=== PATIENT | male | born 1935 | race African-American/Black ===

== ENCOUNTER 2016-03-29 07:09 | Day surgery (SDC) | payer MEDICARE ==
[2016-03-25 11:16] VITALS: BMI 21.4
--- NOTE | 2016-03-29 06:36 | HP ---
History & Physical Update - History History: No Change - Physical Physical: No Change - Assessment Assessment: No Change - Plan Plan: No Change
[~2016-03-29 07:09] MED LIST: CHONDROITIN SU A/HYALUR SOD 1 KIT IO ONE; CYCLOPENTOLATE HCL 1% OPHTH SOLN 2 ML BOTTLE OP SCH; MOXIFLOXACIN HCL 0.5% OPHTHALMIC 3 ML BOTTLE OP SCH; PHENYLEPHRINE 2.5% OPHTH SOLN 15 ML BOTTLE OP SCH; TETRACAINE 0.5% OPHTH SOLN 2 ML BOTTLE TP ONE; TOBRAMYCIN 0.3% OPHTH OINT 3.5 GM OS ONE; TROPICAMIDE 1% OPHTH SOLN 15 ML BOTTLE OP SCH
[2016-03-29] MEDS ORDERED: POVIDONE-IODINE 5% OPHTHALMIC PREP 30 ML SOLUTION ONE (07:19)
[2016-03-29] MEDS ORDERED: BUPIVACAINE HCL/PF 0.75% 10 ML VIAL ONE (07:19)
[2016-03-29] MEDS ORDERED: TOBRAMYCIN/DEXAMETHASONE OPHTH. OINTMENT 1 TUBE ONE (07:19)
[2016-03-29] MEDS ORDERED: TRYPAN BLUE 0.5 ML DISP.SYRIN ONE (07:20)
[2016-03-29 08:08] VITALS: TEMP 98
[2016-03-29] MEDS ORDERED: CYCLOPENTOLATE HCL 1% OPHTH SOLN 2 ML BOTTLE ONE (08:21)
[2016-03-29] MEDS ORDERED: MOXIFLOXACIN HCL 0.5% OPHTHALMIC 3 ML BOTTLE ONE (08:21)
[2016-03-29] MEDS ORDERED: PHENYLEPHRINE 2.5% OPHTH SOLN 15 ML BOTTLE ONE (08:21)
[2016-03-29] MEDS ORDERED: TROPICAMIDE 1% OPHTH SOLN 15 ML BOTTLE ONE (08:22)
[2016-03-29] MEDS ORDERED: MOXIFLOXACIN HCL 0.5% OPHTHALMIC 3 ML BOTTLE OD ONE ×2 (08:55→09:05)
[2016-03-29] MEDS ORDERED: CYCLOPENTOLATE HCL 1% OPHTH SOLN 2 ML BOTTLE OD ONE ×2 (08:55→09:05)
[2016-03-29] MEDS ORDERED: PHENYLEPHRINE 2.5% OPHTH SOLN 15 ML BOTTLE OD ONE ×2 (08:55→09:05)
[2016-03-29] MEDS ORDERED: TROPICAMIDE 1% OPHTH SOLN 15 ML BOTTLE OD ONE ×2 (08:55→09:05)
[2016-03-29] MEDS ORDERED: PROPOFOL 20 ML ONE (10:06)
[2016-03-29] MEDS ORDERED: MIDAZOLAM HCL 2 MG/2 ML SINGLE DOSE VIAL ONE (10:07)
[2016-03-29] MEDS ORDERED: TETRACAINE 0.5% OPHTH SOLN 2 ML BOTTLE TP ONE (10:08)
[2016-03-29] MEDS: LIDOCAINE HCL/PF 2% SDV 5ML VIAL ONE ×2 (10:10→10:50)
[2016-03-29] MEDS ORDERED: POVIDONE-IODINE 5% OPHTHALMIC PREP 30 ML SOLUTION OS ONE (10:11)
[2016-03-29] MEDS ORDERED: BSS (NA/CA/MG/K) BALANCED SALT SOLUTION OPHTH SOLN 15 ML BOTTLE OS ONE (10:18)
[2016-03-29] MEDS ORDERED: TRYPAN BLUE 0.5 ML DISP.SYRIN IO ONE (10:20)
[2016-03-29] MEDS ORDERED: CHONDROITIN/NA HYALURONATE 0.5 ML DISP.SYRIN IO ONE (10:20)
[2016-03-29] MEDS ORDERED: CHONDROITIN SU A/HYALUR SOD 1 KIT IO ONE (10:21)
[2016-03-29] MEDS ORDERED: TOBRAMYCIN 0.3% OPHTH OINT 3.5 GM OS ONE (10:37)
[2016-03-29] MEDS ORDERED: ACETAMINOPHEN 325 MG TABLET (FP) ONE (11:26)
[2016-03-29] MEDS ORDERED: ACETAMINOPHEN 325 MG TABLET (FP) PO ONE (12:15)
[2016-03-29 14:10] VITALS: BP 150/80; PULSE 60
--- NOTE | 2016-03-29 15:02 | OP ---
DATE OF OPERATION: 03/29/2016 SURGEON: Eleazar Lafleur MD PREOPERATIVE DIAGNOSIS: Cataract, left eye. OPERATION: Phacoemulsification and intraocular lens implantation, left eye. POSTOPERATIVE DIAGNOSIS: Cataract, left eye. ANESTHESIA: Local with intravenous sedation. COMPLICATIONS: None. BLOOD LOSS: None. SPECIMEN: None. BRIEF HISTORY: The patient is an 81-year-old man with a past medical history of diabetes who presented with decreased vision in the left eye down to 20/200 due to 3+ nuclear sclerotic lens with anterior cortical changes. After the risks, benefits, and alternatives to cataract surgery were discussed with the patient, he consented to cataract surgery for the left eye. DESCRIPTION OF PROCEDURE: The patient was brought to the operating room and administered retrobulbar block after receiving intravenous sedation. He was then prepped and draped in the usual sterile fashion. Then, an eyelid speculum was inserted in the left eye. A paracentesis was made, and the anterior chamber was inflated with air, trypan blue dye, and Viscoat due to the dense anterior cortical changes. A groove was made in the superotemporal clear cornea which was tunneled forward with a crescent blade. The anterior chamber was entered with a 2.75 keratome. The cystotome was used to make an incision at the center of the capsule, and a continuous curvilinear capsulorrhexis was created. The lens was hydrodissected until it was found to rotate freely within the capsular bag. Phacoemulsification was then used to remove the lens in its entirety. Irrigation and aspiration were used to remove residual cortical material. The anterior chamber and capsular bag were reinflated with Provisc, and a 23.5 diopter [id number] AcrySof intraocular lens was injected into the capsular bag using the [place] injector. The lens was dialed into place using the [employer]comey hook. Irrigation and aspiration were used to remove residual viscoelastic. The wound was stromally hydrated until it was found to be water tight and the eye was in an appropriate pressure. The eyelid speculum was removed from the eye, and TobraDex ointment and a patch and shield were placed over the left eye. The patient was transferred to the recovery room in stable condition and will follow up tomorrow. Anthony [id number] MTDD
== END 2016-03-29 12:05 | disposition home or self-care (01) ==
LOC: JASU-SURG 07:09
PROVIDERS: ATTEND Ophthalmology
PROC: 08RK3JZ Replacement of Left Lens with Synthetic Substitute, Percutaneous Approach (ICD-10-PCS; principal; 2016-03-29 10:00)
DX: H25.12 Age-related nuclear cataract, left eye (principal)

== ENCOUNTER 2019-04-17 21:14 | Inpatient (IN) | payer MEDICARE, OTHER ==
[2019-04-17 22:03] VITALS: BMI 20.3
[2019-04-17] MEDS ORDERED: SODIUM CHLORIDE 1,769 ML IV ONE (22:26)
--- NOTE | 2019-04-17 22:45 | PDOC ---
History of Present Illness - General Chief Complaint: Blood Pressure Problem Stated Complaint: LEG PAIN Time Seen by Provider: 04/17/19 21:21 History Source: Patient, Family Exam Limitations: Language Barrier (Creole) - History of Present Illness Initial Comments: 04/17/19 22:42 Jeffrey Patricia is an 84 year old Occitan-Creole speaking male with PMH CAD, NSTEMI s/p cath w/o stent, HOCM, DM, HTN, CKD presenting with son for AMS and cold symptoms. Per son, patient is baseline non-ambulatory, cannot move legs, cannot go to bathroom alone, gives him bed piedra to use restroom. Son says that yesterday patient was outside and did not have a coat, today has cold symptoms, weakness, and does not want to talk. When asked by son, patient is not speaking, but shakes head and denies chest pain, SOB, N/V/D, abdominal pain, HAM, vision changes. Recent travel from [facility], returned last Monday. Past History - Past Medical History Allergies/Adverse Reactions: Allergies Allergy/AdvReac Type Severity Reaction Status Date / Time No Known Allergies Allergy Verified 03/25/16 10:30 Home Medications: Ambulatory Orders Aspirin [Ecotrin] 81 mg PO DAILY 06/11/15 Lisinopril [Prinivil -] 10 mg PO DAILY 06/11/15 Metoprolol Succinate [Toprol Xl] 100 mg PO DAILY 06/11/15 Sitagliptin Phosphate [Januvia] 100 mg PO DAILY 06/11/15 Clonidine Patch [Catapres Tts Patch -] 0.1 mg TD WEEKLY 02/08/16 Clopidogrel Bisulfate [Plavix -] 75 mg PO DAILY 02/08/16 Insulin Aspart [Novolog Flexpen] 14 unit SQ ASDIR 02/08/16 Insulin Glargine,Hum.rec.anlog [Toujeo Solostar] 14 unit SQ ASDIR 02/08/16 Nifedipine [Procardia Xl] 30 mg PO DAILY 02/08/16 Olmesartan Medoxomil [Benicar -] 40 mg PO DAILY 02/08/16 Cardiac Disorders: Yes (s/p mi s/p cardiac cath ,s/p cardiac stent) COPD: No Diabetes: Yes HTN: Yes - Surgical History Cardiac Surgery: Yes (STENT 07/2015) - Immunization History Immunization Up to Date: No (Pt "does not take vaccines") - Psycho Social/Smoking Cessation Hx Smoking History: Never smoked Have you smoked in the past 12 months: No Information on smoking cessation initiated: No Hx Alcohol Use: No Drug/Substance Use Hx: No Substance Use Type: None Review of Systems - Review of Systems Able to Perform ROS?: Yes Is the patient limited Kiswahili proficient: Yes Constitutional: No: Chills, Fever HEENTM: No: Blurred Vision, Recent change in vision, Hearing Loss Respiratory: No: Cough, Shortness of Breath Cardiac (ROS): No: Chest Pain, Irregular Heart Rate, Lightheadedness, Palpitations ABD/GI: No: Constipated, Diarrhea, Nausea, Poor Appetite, Poor Fluid Intake, Vomiting : No: Burning, Dysuria, Discharge, Frequency, Flank Pain, Hematuria Musculoskeletal: Yes: Muscle Weakness. No: Back Pain Integumentary: No: Symptoms Reported Neurological: Yes: Weakness. No: Headache, Numbness, Paresthesia, Dizziness Endocrine: No: Symptoms Reported Hematologic/Lymphatic: No: Symptoms Reported All Other Systems: Reviewed and Negative *Physical Exam - Vital Signs Last Vital Signs Temp Pulse Resp BP Pulse Ox 99.9 F H 83 16 211/108 H 98 04/17/19 21:59 04/17/19 21:59 04/17/19 21:59 04/17/19 21:59 04/17/19 21:59 - Physical Exam General Appearance: Yes: Nourished, Appropriately Dressed, Thin. No: Apparent Distress HEENT: positive: EOMI, CIERA, Normal ENT Inspection, Symmetrical, Pharynx Normal , Hearing Grossly Normal. negative: Normal Voice (unable to assess), Scleral Icterus (R), Scleral Icterus (L), Pharyngeal Erythema, Tonsillar Exudate, Tonsillar Erythema Neck: positive: Trachea midline, Normal Thyroid, Supple. negative: Tender, Lymphadenopathy (R), Lymphadenopathy (L), Tender lateral, Tender midline Respiratory/Chest: positive: Lungs Clear, Normal Breath Sounds. negative: Chest Tender, Respiratory Distress, Accessory Muscle Use, Crackles, Rales, Rhonchi, Stridor, Wheezing Cardiovascular: positive: Regular Rhythm, Regular Rate, Murmur (holosystolic) Gastrointestinal/Abdominal: positive: Normal Bowel Sounds, Flat, Soft, Protuberent. negative: Tender, Guarding, Rebound, Hernia Male Genitalia: positive: other (scrotal swelling). negative: discharge, testicular tenderness, epididymus tender, inguinal hernia, CVAT Musculoskeletal: positive: Normal Inspection. negative: CVA Tenderness Extremity: positive: Normal Capillary Refill, Normal Inspection, Normal Range of Motion, Pelvis Stable, Other (moving all extremities spontaneously). negative: Tender, Cyanosis Integumentary: positive: Normal Color, Dry, Warm Neurologic: positive: Alert, Normal Mood/Affect, Normal Response, Motor Strength 07/22 ED Treatment Course - LABORATORY CBC & Chemistry Diagram: 04/17/19 23:10 04/17/19 23:10 - RADIOLOGY Radiology Studies Ordered: Category Date Time Status CHEST X-RAY PORTABLE* [RAD] Stat Radiology 04/17/19 22:26 Ordered Medical Decision Making - Medical Decision Making 04/17/19 23:39 Patient presents with son at bedside with new onset non-verbal, weakness, fever since yesterday in the setting of recent travel back from [facility]. Patient is febrile to rectal temp 100.8 in ED, warm to touch. Anticipate PNA, UTI, influenza. Possible tropical infection given recent travel such as malaria. - Sepsis order set ordered - CMP/CBC/CP/Coags - influenza - UA/UC via straight cath - ECG/CXR - Ofirmev/IV NS - malaria/flu testing 04/18/19 00:00 Labs notable for: - CBC WNL - Coags WNL - VBG WNL no acidosis - trop 1.14, always around 1.00 - Cr 2.2, up from 1.5 last time but has been this high before, consistent with JONNA - AP 827 - flu negative 04/18/19 00:10 ECG shows HR 83, QRS 100, QTc 439 with NSR, TWI in II, III, aVL, V5, V6 CXR unremarkable for heart/lung pathology 04/18/19 00:41 Attending spoke to daughter Marcy for collateral. Labetalol ordered for HTN. Discussed case with Dr. Tran in lieu of aaron Spaulding for tele admit under her service. 04/18/19 04:04 CT scan: Nonacute left temporal parietal infarct is noted. Small nonacute right frontal infarct is noted. Involutional changes. No hemorrhage. No mass. No shift or herniation. Ordering ASA for cardiac protection given CT shows no bleeding. Discharge - Discharge Information Problems reviewed: Yes Clinical Impression/Diagnosis: JONNA (acute kidney injury) AMS (altered mental status) Qualifiers: Altered mental status type: unspecified Qualified Code(s): R41.82 - Altered mental status, unspecified Condition: Stable - Admission Yes - Follow up/Referral - Patient Discharge Instructions - Post Discharge Activity
[2019-04-17] MEDS ORDERED: ACETAMINOPHEN 1000 MG/100 ML VIAL (NON FORMULARY) IVPB ONE (23:18)
[2019-04-17 23:31] LABS: VENOUS PC02 44.9 mmHg (38-52); VENOUS PH 7.41 (7.31-7.41)
[2019-04-17 23:32] LABS: BASO % 0.9 % (0-2.0); EOS % 0.2 % (0-4.5); HEMATOCRIT 31.8 % (35.4-49); HEMOGLOBIN 9.9 GM/dL (11.7-16.9); LYMPH % 11.2 % (8-40); MCH 22.6 pg (25.7-33.7); MEAN PLT VOLUME 9.5 fl (7.5-11.1); MONO % 14.2 % (3.8-10.2); NEUT % 73.5 % (42.8-82.8); PLATELET COUNT 260 K/MM3 (134-434); RBC 4.36 M/mm3 (4.00-5.60); RDW 16.2 % (11.9-15.9); WHITE BLOOD COUNT 9.4 K/mm3 (4.0-10.0)
[2019-04-17] MEDS ORDERED: ACETAMINOPHEN INJECTION 100 ML IVPB ONE (23:42)
[2019-04-17 23:43] LABS: INR 1.19 (0.83-1.09); PROTHROMBIN TIME (PATIENT) 14.1 SEC (9.7-13.0)
[2019-04-17 23:46] LABS: ACTIVATED PTT 35.1 SECONDS (25.2-36.5)
[2019-04-17 23:49] LABS: EPI CELLS 2.6 /HPF (0-5/HPF); HYALINE CASTS 7 /lpf (0-8); URINE APPEARANCE CLEAR; URINE BACTERIA 10.2 /hpf (NEGATIVE); URINE BILIRUBIN NEGATIVE (NEGATIVE); URINE COLOR YELLOW; URINE GLUCOSE (UA) 1+ (NEGATIVE); URINE KETONE NEGATIVE (NEGATIVE); URINE LEUK ESTERASE NEGATIVE (NEGATIVE); URINE NITRITE NEGATIVE (NEGATIVE); URINE PROTEIN 3+ (NEGATIVE); URINE RBC 31 /hpf (0-4); URINE UROBILINOGEN 0.2 mg/dL (0.2-1.0); URINE WBC 1 /hpf (0-5)
[2019-04-17] MEDS ORDERED: LABETALOL HCL 5 MG/1 ML (100MG/20 ML VIAL) IVPUSH ONE (23:53)
--- NOTE | 2019-04-18 00:08 | PDOC ---
Documentation entered by Hector Villafuerte SCRIBE, acting as scribe for Tati Gutierrez DO. Tati Gutierrez DO: This documentation has been prepared by the Christo kelley Xhesika, SCRIBE, under my direction and personally reviewed by me in its entirety. I confirm that the documentation accurately reflects all work, treatment, procedures, and medical decision making performed by me. Attending Attestation - Resident Resident Name: Prem Bowden - ED Attending Attestation I have performed the following: I have examined & evaluated the patient, The case was reviewed & discussed with the resident, I agree w/resident's findings & plan, Exceptions are as noted - HPI HPI: 04/17/19 23:25 The patient is an 84 year old male with a significant PMH of CAD, NSTEMI s/p cath w/o stent, HOCM, DM, HTN, CKD who presents to the emergency department for AMS and weakness and HTN. Son states the patient went to see Dr. López yesterday, was outside cold and patient returned home he felt weak and had some cold symptoms. Son states the patient stopped talking to everyone at around 2pm and was nonverbal. Patient reports recent travel to [facility] and returned 04/08/2019. Allergies: NKDA - Physicial Exam PE: 04/17/19 23:26 GENERAL: Awake, alert, and fully oriented, +generalized weakness +warm to touch HEAD: No signs of trauma ENT: Auricles normal inspection, hearing grossly normal, nares patent, oropharynx clear without exudates. +no teeth NECK: Normal ROM, supple, no lymphadenopathy, JVD, or masses LUNGS: Breath sounds equal, clear to auscultation bilaterally. No wheezes, and no crackles HEART: Regular rate and rhythm, normal S1 and S2, no murmurs, rubs or gallops ABDOMEN: Soft, nontender, normoactive bowel sounds. No guarding, no rebound. No masses EXTREMITIES: Normal range of motion, no edema. No clubbing or cyanosis. No cords, erythema, or tenderness NEUROLOGICAL: Cranial nerves II through XII grossly intact. SKIN: Warm, +dry scaly skin - Medical Decision Making 04/17/19 23:54 a/p: 84yo male with recent travel to [facility] with fever and "not feeling well, has a cold" since yesterday -became more weak today and stop speaking around 2p -pt with glu >300 at home -pt arrives febrile -unsure if he received the flu vaccine yesterday -pt moving all extremities, but generally weak all over -will send labs, cultures, flu, cxr, head ct, straight cath for ua -will start tylenol, ivf, bp control -will monitor and reassess 04/18/19 00:24 pt with elevated trop 04/18/19 00:[address] rafi lópez- call placed to dr. tran cards: [facility] cards- Dr Ambrose and Dr. Barbour, call placed discussed labs with family and patient 04/18/19 00:43 Marcy - the daughter was updated as well as the son who is at the bedside 04/18/19 00:43 resident discussing the case with renato who accepts pt to service 04/18/19 00:48 resident discussed the case with Dr. Tran i discussed the case with dr. neil - eduardo when head ct neg, if pt develops cp then repeat trop, ekg, add meds for NSTEMI Heart Score/ECG Review - ECG Intrepretation Comment:: 04/17/19 23:58 sinus at 83, nl axis, q waves septally which are age indeterminate, t wave inversions lateral leads, no changes from prior
[2019-04-18 00:14] LABS: ALBUMIN 2.7 g/dl (3.4-5.0); BILIRUBIN,TOTAL 0.4 mg/dL (0.2-1); BLOOD UREA NITROGEN 25.3 mg/dL (7-18); CALCIUM 9.7 mg/dL (8.5-10.1); CREATININE 2.2 mg/dL (0.55-1.3); POTASSIUM 4.3 mmol/L (3.5-5.1); TOT PROT 6.5 g/dl (6.4-8.2)
[2019-04-18] MEDS ORDERED: ASPIRIN 81 MG CHEWABLE TABLETS PO ONE (04:06)
[2019-04-18] MEDS ORDERED: ASPIRIN 81 MG CHEWABLE TABLETS ONE (04:48)
[2019-04-18] MEDS ORDERED: DEXTROSE 5%-0.45% SALINE 1,000 ML IV SCH (09:45)
[2019-04-18] MEDS ORDERED: NIFEdipine E.R. 30 MG TABLET PO SCH (10:00)
[2019-04-18] MEDS ORDERED: LISINOPRIL 10 MG TABLET (FP) PO SCH (10:00)
--- NOTE | 2019-04-18 10:59 | CON.CARD ---
Cardiology Consult (text) - Consultation Consultation Note: cc: weak, ams hpi: 84 m hx of cad s/p nstemi and remote pci, HOCM, dm, htn, ckd (cr baseline near 2) here with ams, weakness. No cp sob palps dizzy loc pnd orthopnea le edema. Has fever in ER. Also mild trop elevation. pmh: per hpi psh: pci social: no tob fam: unknown ros: per hpi; all others nl meds: Home Medications Medication Instructions Recorded Aspirin [Ecotrin] 81 mg PO DAILY 06/11/15 Lisinopril [Prinivil -] 10 mg PO DAILY 06/11/15 Metoprolol Succinate [Toprol Xl] 100 mg PO DAILY 06/11/15 Sitagliptin Phosphate [Januvia] 100 mg PO DAILY 06/11/15 Clonidine Patch [Catapres Tts 0.1 mg TD WEEKLY 02/08/16 Patch -] Clopidogrel Bisulfate [Plavix -] 75 mg PO DAILY 02/08/16 Insulin Aspart [Novolog Flexpen] 14 unit SQ ASDIR 02/08/16 Insulin Glargine,Hum.rec.anlog 14 unit SQ ASDIR 02/08/16 [Toujeo Solostar] Nifedipine [Procardia Xl] 30 mg PO DAILY 02/08/16 Olmesartan Medoxomil [Benicar -] 40 mg PO DAILY 02/08/16 Vital Signs Period Temp Pulse Resp BP Sys/Guererro Pulse Ox Last 24 Hr 99.9 F-101.1 F 71-86 12-18 164-211/83-108 94-98 nad, no jvd rrr s1s2 no r/g, +systolic murmur no le e/c/c cta bl, nl eff aaox3 abd nt nd pos bs pos dp pt no carotid bruits no jaundice diaphoresis Laboratory Last Values WBC 9.4 K/mm3 (4.0-10.0) 04/17/19 23:10 RBC 4.36 M/mm3 (4.00-5.60) 04/17/19 23:10 Hgb 9.9 GM/dL (11.7-16.9) L 04/17/19 23:10 Hct 31.8 % (35.4-49) L D 04/17/19 23:10 MCV 73.0 fl (80-96) L 04/17/19 23:10 MCH 22.6 pg (25.7-33.7) L 04/17/19 23:10 MCHC 31.0 g/dl (32.0-35.9) L 04/17/19 23:10 RDW 16.2 % (11.9-15.9) H 04/17/19 23:10 Plt Count 260 K/MM3 (134-434) D 04/17/19 23:10 MPV 9.5 fl (7.5-11.1) D 04/17/19 23:10 Absolute Neuts (auto) 6.9 K/mm3 (1.5-8.0) 04/17/19 23:10 Neutrophils % 73.5 % (42.8-82.8) D 04/17/19 23:10 Lymphocytes % 11.2 % (8-40) D 04/17/19 23:10 Monocytes % 14.2 % (3.8-10.2) H 04/17/19 23:10 Eosinophils % 0.2 % (0-4.5) D 04/17/19 23:10 Basophils % 0.9 % (0-2.0) 04/17/19 23:10 Nucleated RBC % 0 % (0-0) 04/17/19 23:10 PT with INR 14.10 SEC (9.7-13.0) H 04/17/19 23:10 INR 1.19 (0.83-1.09) H 04/17/19 23:10 PTT (Actin FS) 35.1 SECONDS (25.2-36.5) 04/17/19 23:10 VBG pH 7.41 (7.31-7.41) 04/17/19 23:10 POC VBG pCO2 44.9 mmHg (38-52) 04/17/19 23:10 POC VBG pO2 69.0 mmHg (28-48) H 04/17/19 23:10 VBG HCO3 28.1 mmol/L (23-29) 04/17/19 23:10 VBG O2 Sat (Nas) 93.7 % (70-80) H 04/17/19 23:10 VBG Base Excess 3.5 meq/l (-2-2) H 04/17/19 23:10 Sodium 145 mmol/L (136-145) 04/17/19 23:10 Potassium 4.3 mmol/L (3.5-5.1) 04/17/19 23:10 Chloride 110 mmol/L (98-107) H 04/17/19 23:10 Carbon Dioxide 27 mmol/L (21-32) 04/17/19 23:10 Anion Gap 8 MMOL/L (8-16) 04/17/19 23:10 BUN 25.3 mg/dL (7-18) H 04/17/19 23:10 Creatinine 2.2 mg/dL (0.55-1.3) H 04/17/19 23:10 Est GFR (CKD-EPI)AfAm 30.74 04/17/19 23:10 Est GFR (CKD-EPI)NonAf 26.52 04/17/19 23:10 POC Glucometer 316 UNITS (80-120) 04/18/19 09:17 Random Glucose 217 mg/dL (74-106) H 04/17/19 23:10 Lactic Acid 0.8 mmol/L (0.4-2.0) 04/17/19 23:10 Calcium 9.7 mg/dL (8.5-10.1) 04/17/19 23:10 Total Bilirubin 0.4 mg/dL (0.2-1) 04/17/19 23:10 AST 57 U/L (15-37) H 04/17/19 23:10 ALT 19 U/L (13-61) 04/17/19 23:10 Alkaline Phosphatase 827 U/L (45-117) H 04/17/19 23:10 Troponin I 0.99 ng/ml (0.00-0.05) H* 04/18/19 07:20 Total Protein 6.5 g/dl (6.4-8.2) 04/17/19 23:10 Albumin 2.7 g/dl (3.4-5.0) L 04/17/19 23:10 Urine Color Yellow 04/17/19 23:35 Urine Appearance Clear 04/17/19 23:35 Urine pH 6.0 (5.0-8.0) 04/17/19 23:35 Ur Specific [place] 1.019 (1.010-1.035) 04/17/19 23:35 Urine Protein 3+ (NEGATIVE) H 04/17/19 23:35 Urine Glucose (UA) 1+ (NEGATIVE) H 04/17/19 23:35 Urine Ketones Negative (NEGATIVE) 04/17/19 23:35 Urine Blood 1+ (NEGATIVE) H 04/17/19 23:35 Urine Nitrite Negative (NEGATIVE) 04/17/19 23:35 Urine Bilirubin Negative (NEGATIVE) 04/17/19 23:35 Urine Urobilinogen 0.2 mg/dL (0.2-1.0) 04/17/19 23:35 Ur Leukocyte Esterase Negative (NEGATIVE) 04/17/19 23:35 Urine WBC (Auto) 1 /hpf (0-5) 04/17/19 23:35 Urine RBC (Auto) 31 /hpf (0-4) 04/17/19 23:35 Urine Casts (Auto) 7 /lpf (0-8) 04/17/19 23:35 U Epithel Cells (Auto) 2.6 /HPF (0-5/HPF) 04/17/19 23:35 Urine Bacteria (Auto) 10.2 /hpf (NEGATIVE) 04/17/19 23:35 Influenza A (Rapid) Negative (Negative) 04/18/19 00:00 Influenza B (Rapid) Negative (Negative) 04/18/19 00:00 ecg: sr, nl intervals, lvh with repol changes, no sig change prior echo 06/2013: nl lvef, severe conc lvh c/w HCM, lae, +TREMAINE, lvot gradient 30 mmHg , MR (severity not reported), mild tr echo 2016: Severe LVH (1.4/1.8), Nl LV/RV function. TREMAINE with mod-severe eccentric MR. LVOT gradients not mentioned. stress MPI 05/2015: mod inferior, inferolateral and inferoapical reversible defect compatible with mild ischemia. Global HK, mild LV dil. EF 32%. + TID a/p: 84 m hx of cad s/p nstemi and remote pci, HOCM, dm, htn, ckd (cr baseline near 2) here with ams, weakness. ams, weakness: - pt with fever in ER, possibly infectious etiology of sxs, cultures pending, plan per primary pos trops: -mild trop elevation, flat trend -no cardiac symptoms -ecg not as helpful for diagnosing ischemia due to severe lvh with repol changes , but no change from prior -does not appear to be acs, possibly demand ischemia -would cont to trend trop -check echo -plan for mibi for risk stratification prior to dc -given ckd would attempt to continue medical management if mibi is low risk study hocm: -pt has known hx of HOCM with TREMAINE and severe lvot gradient on cath 2011 -he does not appear to have symptoms from HOCM, BP stable -cont home bb -per daughter he was rec'd icd but declined in past htn: -stable on current meds cad, hx nstemi: -plan as above -cont home asa, bb, clay -start statin karuna, ckd: -cr near baseline, monitor
[2019-04-18] MEDS: CLOPIDOGREL BISULFATE 75 MG TABLET (FP) PO SCH (12:15)
--- NOTE | 2019-04-18 12:39 | EKG ---
Test Reason : Blood Pressure : / mmHG Vent. Rate : 083 BPM Atrial Rate : 083 BPM P-R Int : 172 ms QRS Dur : 100 ms QT Int : 374 ms P-R-T Axes : 030 021 171 degrees QTc Int : 439 ms NORMAL SINUS RHYTHM POSSIBLE LEFT ATRIAL ENLARGEMENT LEFT VENTRICULAR HYPERTROPHY WITH REPOLARIZATION ABNORMALITY CANNOT RULE OUT SEPTAL INFARCT , AGE UNDETERMINED ABNORMAL ECG WHEN COMPARED WITH ECG OF 12-JUN-2015 12:45, MINIMAL CRITERIA FOR SEPTAL INFARCT ARE NOW PRESENT ST NO LONGER DEPRESSED IN INFERIOR LEADS ST MORE ELEVATED IN ANTERIOR LEADS T WAVE INVERSION LESS EVIDENT IN ANTERIOR LEADS Confirmed by AL BLACK MD ([id number]) on 04/18/2019 12:39:16 PM Referred By: Confirmed By:AL BLACK MD
[2019-04-18] MEDS: INSULIN SLIDING SCALE (NOVOLOG) 1 VIAL SQ SCH ×3 (13:03→21:28)
--- NOTE | 2019-04-18 14:18 | CON.ID ---
Consult Consult Specialty:: infectous diseases Referred by:: Reason for Consultation:: weakness,cold - History of Present Illness Chief Complaint: weakness History of Present Illness: Jeffrey Patricia is an 84 year old Belarusian-Creole speaking male with PMH CAD, NSTEMI s/p cath w/o stent, HOCM, DM, HTN, CKD came to the hospital for ams patient it seems was non verbal yesterday,today patient is speaking though he cannot speak new zealander , patient is baseline non-ambulatory, cannot move legs, cannot go to bathroom alone, gives him bed piedra to use restroom. Son says that yesterday patient was outside and did not have a coat, today has cold symptoms, weakness, and does not want to talk. currently patient stable Recent travel from [facility], returned last Monday. - History Source History Provided By: Family Member, Medical Record Limitations to Obtaining History: Language Barrier - Alcohol/Substance Use Hx Alcohol Use: No - Smoking History Smoking history: Never smoked Have you smoked in the past 12 months: No Home Medications - Allergies Allergies/Adverse Reactions: Allergies Allergy/AdvReac Type Severity Reaction Status Date / Time No Known Allergies Allergy Verified 03/25/16 10:30 - Home Medications Home Medications: Ambulatory Orders Aspirin [Ecotrin] 81 mg PO DAILY 06/11/15 Lisinopril [Prinivil -] 10 mg PO DAILY 06/11/15 Metoprolol Succinate [Toprol Xl] 100 mg PO DAILY 06/11/15 Sitagliptin Phosphate [Januvia] 100 mg PO DAILY 06/11/15 Clonidine Patch [Catapres Tts Patch -] 0.1 mg TD WEEKLY 02/08/16 Clopidogrel Bisulfate [Plavix -] 75 mg PO DAILY 02/08/16 Insulin Aspart [Novolog Flexpen] 14 unit SQ ASDIR 02/08/16 Insulin Glargine,Hum.rec.anlog [Toujeo Solostar] 14 unit SQ ASDIR 02/08/16 Nifedipine [Procardia Xl] 30 mg PO DAILY 02/08/16 Olmesartan Medoxomil [Benicar -] 40 mg PO DAILY 02/08/16 Review of Systems - Review of Systems Constitutional: reports: Weakness Eyes: reports: No Symptoms HENT: reports: No Symptoms Neck: reports: No Symptoms Cardiovascular: reports: No Symptoms Respiratory: reports: No Symptoms Gastrointestinal: reports: No Symptoms Genitourinary: reports: No Symptoms Musculoskeletal: reports: Muscle Pain Integumentary: reports: No Symptoms Neurological: reports: No Symptoms Endocrine: reports: No Symptoms Hematology/Lymphatic: reports: No Symptoms Psychiatric: reports: No Symptoms Physical Exam Vital Signs: Vital Signs Temperature 101.1 F H 04/17/19 23:30 Pulse Rate 73 04/18/19 06:30 Respiratory Rate 18 04/18/19 06:30 Blood Pressure 180/89 H 04/18/19 06:30 O2 Sat by Pulse Oximetry (%) 94 L 04/18/19 06:30 Constitutional: Yes: Well Nourished, No Distress Eyes: Yes: Conjunctiva Clear Neck: Yes: Supple Cardiovascular: Yes: Regular Rate and Rhythm Respiratory: Yes: Regular, CTA Bilaterally Gastrointestinal: Yes: Normal Bowel Sounds, Soft Musculoskeletal: Yes: WNL Extremities: Yes: Other Neurological: Yes: Alert, Oriented Psychiatric: Yes: Alert, Oriented Labs: CBC, BMP 04/17/19 23:10 04/17/19 23:10 Imaging - Results Chest X-ray: Report Reviewed, Image Reviewed Assessment/Plan 1. CKD with acute component 2. htn 3. DM 4. cad plan will hold of on starting any abx await for all cx reports rest as per the team
--- NOTE | 2019-04-18 17:04 | HP ---
Admitting History and Physical - Admission History of Present Illness: Pt is an 84 year old Welsh-Creole speaking male with PMH CAD, NSTEMI s/p cath w /o stent, HOCM, DM, HTN, CKD presenting with son for AMS. As per son, pt's baseline non-ambulatory, cannot move legs, cannot go to bathroom alone, and gives him bed piedra to use restroom. Pt did recently travel from [facility], returned last Monday. In the ER pt was febrile w/ mildly elevated troponin. - Past Medical History COMPUTATIONAL GENETICIST: Yes: CVA Cardiovascular: Yes: CAD, HTN, RI Renal/: Yes: Renal Failure Endocrine: Yes: Diabetes Insipidus - Smoking History Smoking history: Never smoked Have you smoked in the past 12 months: No - Alcohol/Substance Use Hx Alcohol Use: No Home Medications - Allergies Allergies/Adverse Reactions: Allergies Allergy/AdvReac Type Severity Reaction Status Date / Time No Known Allergies Allergy Verified 03/25/16 10:30 - Home Medications Home Medications: Ambulatory Orders Aspirin [Ecotrin] 81 mg PO DAILY 06/11/15 Lisinopril [Prinivil -] 10 mg PO DAILY 06/11/15 Metoprolol Succinate [Toprol Xl] 100 mg PO DAILY 06/11/15 Sitagliptin Phosphate [Januvia] 100 mg PO DAILY 06/11/15 Clonidine Patch [Catapres Tts Patch -] 0.1 mg TD WEEKLY 02/08/16 Clopidogrel Bisulfate [Plavix -] 75 mg PO DAILY 02/08/16 Insulin Aspart [Novolog Flexpen] 14 unit SQ ASDIR 02/08/16 Insulin Glargine,Hum.rec.anlog [Toujeo Solostar] 14 unit SQ ASDIR 02/08/16 Nifedipine [Procardia Xl] 30 mg PO DAILY 02/08/16 Olmesartan Medoxomil [Benicar -] 40 mg PO DAILY 02/08/16 Family Medical History Family History: Unable to Obtain Review of Systems Unable to obtain ROS, reason: Pt not answering Physical Examination Vital Signs: Vital Signs Temperature 98.5 F 04/18/19 14:49 Pulse Rate 82 04/18/19 14:49 Respiratory Rate 20 04/18/19 14:49 Blood Pressure 154/79 04/18/19 14:49 O2 Sat by Pulse Oximetry (%) 94 L 04/18/19 09:00 Constitutional: Yes: No Distress Eyes: Yes: WNL HENT: Yes: WNL Neck: Yes: WNL, Supple Cardiovascular: Yes: Tachycardia Respiratory: Yes: Diminished Gastrointestinal: Yes: WNL, Normal Bowel Sounds, Soft Extremities: Yes: WNL Edema: No Neurological: Yes: WNL, Alert, Oriented ...Motor Strength: WNL Labs: CBC, BMP 04/17/19 23:10 04/17/19 23:10 Problem List - Problems (1) AMS (altered mental status) Assessment/Plan: ?Due to sepsis Check MRI brain CT scan head unremarkable Check echo/carotid doppler Cardio/neuro/ID consults Code(s): R41.82 - ALTERED MENTAL STATUS, UNSPECIFIED Qualifiers: Altered mental status type: unspecified Qualified Code(s): R41.82 - Altered mental status, unspecified (2) Elevated troponin Assessment/Plan: Cont to monitor ?Demenad ischemia Check echo Code(s): R79.89 - OTHER SPECIFIED ABNORMAL FINDINGS OF BLOOD CHEMISTRY (3) Diabetes Assessment/Plan: Cont sliding scale w/ coverage Code(s): E11.9 - TYPE 2 DIABETES MELLITUS WITHOUT COMPLICATIONS (4) Hypertension Assessment/Plan: Bp elevated on admission Code(s): I10 - ESSENTIAL (PRIMARY) HYPERTENSION (5) Acute on chronic renal failure Assessment/Plan: Cont IVF Renal consult Code(s): N17.9 - ACUTE KIDNEY FAILURE, UNSPECIFIED; N18.9 - CHRONIC KIDNEY DISEASE, UNSPECIFIED (6) CAD (coronary artery disease) Assessment/Plan: Cont plavix Code(s): I25.10 - ATHSCL HEART DISEASE OF [place] CORONARY ARTERY W/O ANG PCTRS
--- NOTE | 2019-04-18 17:25 | CONSULT ---
Consult Consult Specialty:: Nephrology Reason for Consultation:: CKD - History of Present Illness Chief Complaint: altered mental status and weekness History of Present Illness: Pt is an 84 year old male with pmhx of ckd, cad, nstemi, dm and htn who presents to the ER with altered mental status and weakness. He had URI symptoms and weakness. 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 He had a recent trip to [facility] and he returned on the . He is awake but not very interactive. - History Source History Provided By: Medical Record - Past Medical History Cardio/Vascular: Yes: HTN Renal/: Yes: Renal Inusuff Endocrine: Yes: Diabetes Mellitus - Alcohol/Substance Use Hx Alcohol Use: No - Smoking History Smoking history: Never smoked Have you smoked in the past 12 months: No Home Medications - Allergies Allergies/Adverse Reactions: Allergies Allergy/AdvReac Type Severity Reaction Status Date / Time No Known Allergies Allergy Verified 03/25/16 10:30 - Home Medications Home Medications: Ambulatory Orders Aspirin [Ecotrin] 81 mg PO DAILY 06/11/15 Lisinopril [Prinivil -] 10 mg PO DAILY 06/11/15 Metoprolol Succinate [Toprol Xl] 100 mg PO DAILY 06/11/15 Sitagliptin Phosphate [Januvia] 100 mg PO DAILY 06/11/15 Clonidine Patch [Catapres Tts Patch -] 0.1 mg TD WEEKLY 02/08/16 Clopidogrel Bisulfate [Plavix -] 75 mg PO DAILY 02/08/16 Insulin Aspart [Novolog Flexpen] 14 unit SQ ASDIR 02/08/16 Insulin Glargine,Hum.rec.anlog [Toujeo Solostar] 14 unit SQ ASDIR 02/08/16 Nifedipine [Procardia Xl] 30 mg PO DAILY 02/08/16 Olmesartan Medoxomil [Benicar -] 40 mg PO DAILY 02/08/16 Family Medical History Family History: Denies Review of Systems - Review of Systems Constitutional: reports: Malaise Eyes: reports: No Symptoms HENT: reports: No Symptoms Neck: reports: No Symptoms Cardiovascular: reports: No Symptoms Respiratory: reports: No Symptoms Gastrointestinal: reports: No Symptoms Genitourinary: reports: No Symptoms Neurological: reports: Confusion Endocrine: reports: No Symptoms Hematology/Lymphatic: reports: No Symptoms Psychiatric: reports: No Symptoms Physical Exam Vital Signs: Vital Signs Temperature 98.9 F 04/18/19 16:33 Pulse Rate 81 04/18/19 16:33 Respiratory Rate 20 04/18/19 16:33 Blood Pressure 175/80 H 04/18/19 16:33 O2 Sat by Pulse Oximetry (%) 94 L 04/18/19 16:33 Constitutional: Yes: Calm Eyes: Yes: Conjunctiva Clear HENT: Yes: Atraumatic Cardiovascular: Yes: S1, S2 Respiratory: Yes: CTA Bilaterally Gastrointestinal: Yes: Soft Renal/: Yes: Bladder Distention Musculoskeletal: Yes: WNL Edema: No Neurological: Yes: Confusion Labs: CBC, BMP 04/17/19 23:10 04/17/19 23:10 Laboratory Tests 06/14/15 06/16/15 04/17/19 06:00 05:50 23:10 Creatinine 1.5 H 1.5 H 2.2 H Imaging - Results Chest X-ray: Report Reviewed Problem List - Problems (1) CKD (chronic kidney disease) Code(s): N18.9 - CHRONIC KIDNEY DISEASE, UNSPECIFIED Assessment/Plan Current Medications Generic Name Dose Route Start Last Admin Trade Name Freq PRN Reason Stop Dose Admin Aspirin 81 mg 04/19/19 10:00 Ecotrin - PO DAILY [facility] Clonidine HCl 0.1 mg 04/18/19 09:45 Catapres Tts Patch - TD Th [facility] Clopidogrel Bisulfate 75 mg 04/18/19 10:00 04/18/19 12:15 Plavix - PO 75 mg DAILY SYDNEE Administration Dextrose/Sodium Chloride 1,000 mls @ 75 mls/hr 04/18/19 09:45 D5-1/2ns - IV ASDIR SYDNEE Insulin Aspart 1 vial 04/18/19 11:00 04/18/19 13:03 Novolog Vial Sliding Scale - SQ 6 units ACHS SYDNEE Administration Protocol Lisinopril 10 mg 04/18/19 10:00 04/18/19 12:15 Prinivil PO 10 mg DAILY SYDNEE Administration Metoprolol Succinate 100 mg 04/18/19 10:00 04/18/19 12:15 Toprol Xl - PO 100 mg DAILY SYDNEE Administration Nifedipine 30 mg 04/18/19 10:00 04/18/19 12:15 Procardia Xl - PO 30 mg DAILY SYDNEE Administration Sitagliptin Phosphate 100 mg 04/18/19 10:00 Januvia - PO DAILY@0700 [facility] Impression 1. CKD with acute component 2. htn 3. DM 4. cad Plan - check bladder scan to rule out obstruction - will order renal ultrasound as well - repeat labs in am - obtain outpt records - avoid nsaids - check bp after meds, increase nifedipine to 60 if not improved
--- NOTE | 2019-04-18 21:27 | CONSULT ---
Consult - text type - Consultation Consultation Note: NEUROLOGY CONSULTATION is greatly appreciated: Events reviewed. Patient examind with his son, Denys, at the bedside who provides history and aides in translation. This 84 yo RH man lives with Denys and his lives upstairs. Travelled by himself to [facility] for 2 weeks in Feb. Has been home for over a month. PMH sig for: HTN, DM, HLD, s/p MA, s/p stent. Followed by Kaden López. Maintained on: Aspirin 81; lisinopril; Metoprolol; Sitagliptin; Clonidine Patch ; Clopidogrel; Insulin; Nifedipine; and Olmesartan. Son claims normal gait and mentation until "3 days ago" when he "stopped talking and walking." Now admitted with low grade temps. CT of head (reviewed): Moderate, diffuse atrophy. Left parietal white matter lucency Duplex dopplers: 60% stenosis bilaterally Alk hkgc=276 mg%, Cr=2.2 mg% ASAF: III/ ESSENCE + natalie. No bruits. No head trauma. BP 180/100 NEURO (in Ivorian): Sparse speech. Follows commands with repetition and visual clues + Glabela, snout. Full cary to threat. Full EOM's. No facial. Gag and tongue PUJA's normal. No drift or tremor. Normal strength. ++Cogwheel rigidity, Brisk reflexes, symmetrically. Downgoing toes. Withdraws all 4's symmetrically to pinch IMP: Moderate B/L cerebral dysfunction with extrapyramidal (Parkinsonian) features (These may be more chronic than history suggests) Will worsen with Toxic Metabolic Encephalopathy such as fever/infection and will increase rigidity, and worsen gait and mentation. Cannot exclude CVA/ aphasia SUGGEST: MRI of brain in AM (C- due to renal insufficiency) OO Bed to chair. PT eval of gait and Rx with walker BP Control. Continue plavix. Add a statin. Check B12, TSH, RPR, ESR, CRP Neduro f/u for possible Rx of OMS and/or PD Thank you very much, Denys Macdonald MD
[2019-04-18] MEDS ORDERED: amLODIPine BESYLATE 5 MG TABLET (FP) PO ONE (22:39)
--- NOTE | 2019-04-18 22:44 | ECHO ---
Version: 1 Name: BRIANDA TAYLOR Exam: Adult Echocardiogram Study Date: 04/18/2019, 2:43 PM Age: 84 Years MMode/2D Measurements & Calculations IVSd: 2.23 cm LVIDs: 2.22 cm LVIDd: 3.2 cm LVPWd: 2.16 cm ACS: 1.71 cm Ao root diam: 3.3 cm LVOT diam: 2.01 cm LA dimension: 3.8 cm Doppler Measurements & Calculations MV E max gustavo: 112.0 cm/sec Med E/e': 24.5 MV A max gustavo: 109.6 cm/sec Med Peak E' Gustavo: 4.6 cm/sec MV E/A: 1.02 Lat E/e': 19.8 Lat Peak E' Gustavo: 5.7 cm/sec LV V1 mean: 263.2 cm/sec LV V1 mean P.6 mmHg TR max gustavo: 235.6 cm/sec TR max P.2 mmHg Procedure A complete two-dimensional transthoracic echocardiogram was performed (2D, M-mode, Doppler and color flow Doppler). Left Ventricle The echo findings are consistent with non-obstructive hypertrophic cardiomyopathy. The left ventricu lar ejection fraction is normal. Ejection Fraction = 60-65%. The left ventricular wall motion is normal. Right Ventricle The right ventricle is normal in size and function. Atria Normal left and right atrial size and function. Mitral Valve There is systolic anterior motion of the chordal apparatus. There is trace mitral regurgitation. Tricuspid Valve No tricuspid regurgitation. Aortic Valve No hemodynamically significant valvular aortic stenosis. No aortic regurgitation is present. Pulmonic Valve There is no pulmonic valvular regurgitation. Great Vessels The aortic root is normal size. Pericardium/Pleura There is no pericardial effusion. Summary Statements The echo findings are consistent with non-obstructive hypertrophic cardiomyopathy. The left ventricular ejection fraction is normal. The right ventricle is normal in size and function. There is systolic anterior motion of the chordal apparatus. There is trace mitral regurgitation. MD Javad Barbour 04/18/2019, 10:44 PM Ordering Physician: Miranda Tran Referring Physician: MIRANDA TRAN Performed By: Patricia Lock
[2019-04-19] MEDS: HEPARIN NA (PORCINE) 5,000 UNITS/ML 1ML VIAL SQ SCH ×3 (00:04→22:28)
[2019-04-19] MEDS: INSULIN SLIDING SCALE (NOVOLOG) 1 VIAL SQ SCH ×3 (06:29→22:29)
[2019-04-19 07:41] LABS: BASO % 0.5 % (0-2.0); EOS % 0.6 % (0-4.5); HEMATOCRIT 28.6 % (35.4-49); HEMOGLOBIN 9.1 GM/dL (11.7-16.9); LYMPH % 17.1 % (8-40); MCHC 31.7 g/dl (32.0-35.9); MEAN CELL VOLUME 72.4 fl (80-96); MEAN PLT VOLUME 9.8 fl (7.5-11.1); MONO % 13.9 % (3.8-10.2); NEUT % 67.9 % (42.8-82.8); PLATELET COUNT 201 K/MM3 (134-434); RBC 3.96 M/mm3 (4.00-5.60); RDW 16.6 % (11.9-15.9); WHITE BLOOD COUNT 7.4 K/mm3 (4.0-10.0)
[2019-04-19 08:20] LABS: ALBUMIN 2.2 g/dl (3.4-5.0); BILIRUBIN,TOTAL 0.4 mg/dL (0.2-1); BLOOD UREA NITROGEN 27.1 mg/dL (7-18); CALCIUM 8.5 mg/dL (8.5-10.1); CREATININE 2.2 mg/dL (0.55-1.3); POTASSIUM 3.9 mmol/L (3.5-5.1); TOT PROT 5.6 g/dl (6.4-8.2)
--- NOTE | 2019-04-19 10:02 | PN ---
Progress Note, Physician Chief Complaint: comfortable, family at bedside. Denies CP, SOB, palps. TELE: NSR, rare PVC History of Present Illness: BP is elevated above target - Current Medication List Current Medications: Active Medications Aspirin (Ecotrin -) 81 mg PO DAILY [facility] Atorvastatin Calcium (Lipitor -) 10 mg PO HS [facility] Clonidine HCl (Catapres Tts Patch -) 0.1 mg TD Th [facility] Clopidogrel Bisulfate (Plavix -) 75 mg PO DAILY [facility] Last Admin: 04/18/19 12:15 Dose: 75 mg Heparin Sodium (Porcine) (Heparin -) 5,000 unit SQ BID [facility] Last Admin: 04/19/19 00:04 Dose: 5,000 unit Insulin Aspart (Novolog Vial Sliding Scale -) 1 vial SQ ACHS [facility]; Protocol Last Admin: 04/19/19 06:29 Dose: 6 units Metoprolol Succinate (Toprol Xl -) 100 mg PO DAILY [facility] Last Admin: 04/18/19 12:15 Dose: 100 mg Nifedipine (Procardia Xl -) 60 mg PO DAILY [facility] Sitagliptin Phosphate (Januvia -) 100 mg PO DAILY@0700 [facility] - Objective Vital Signs: Vital Signs Temperature 98.2 F 04/19/19 09:00 Pulse Rate 76 04/19/19 09:00 Respiratory Rate 20 04/19/19 09:00 Blood Pressure 175/88 H 04/19/19 09:00 O2 Sat by Pulse Oximetry (%) 96 04/19/19 09:00 Constitutional: Yes: No Distress Cardiovascular: Yes: Regular Rate and Rhythm, Murmur Respiratory: Yes: CTA Bilaterally Gastrointestinal: Yes: Soft Edema: No Neurological: Yes: Alert, Oriented ...Motor Strength: WNL Labs: CBC, BMP 04/19/19 06:35 04/19/19 06:35 INR, PTT INR 1.19 (0.83-1.09) H 04/17/19 23:10 Microbiology 04/17/19 23:10 Blood - Peripheral Venous Blood Culture - Preliminary NO GROWTH OBTAINED AFTER 24 HOURS, INCUBATION TO CONTINUE FOR 4 DAYS. 04/17/19 23:10 Blood - Peripheral Venous Blood Culture - Preliminary NO GROWTH OBTAINED AFTER 24 HOURS, INCUBATION TO CONTINUE FOR 4 DAYS. Laboratory Tests 04/19/19 04/19/19 06:35 06:35 WBC 7.4 Hgb 9.1 L Plt Count 201 D Sodium 144 Potassium 3.9 BUN 27.1 H Creatinine 2.2 H - ....Imaging EKG: Image Reviewed Assessment/Plan DATA: ecg: sr, nl intervals, lvh with repol changes, no sig change prior echo 06/2013: nl lvef, severe conc lvh c/w HCM, lae, +TREMAINE, lvot gradient 30 mmHg , MR (severity not reported), mild tr echo 2016: Severe LVH (1.4/1.8), Nl LV/RV function. TREMAINE with mod-severe eccentric MR. LVOT gradients not mentioned. stress MPI 05/2015: mod inferior, inferolateral and inferoapical reversible defect compatible with mild ischemia. Global HK, mild LV dil. EF 32%. + TID a/p: 84 m hx of cad s/p nstemi and remote pci, HOCM, dm, htn, ckd (cr baseline near 2) here with ams, weakness and fever: ams, weakness, fever: - pt with fever , possibly infectious etiology of sxs, cultures pending, plan per primary pos trops: -mild trop elevation, flat trend -no cardiac symptoms -ecg not as helpful for diagnosing ischemia due to severe lvh with repol changes , but no change from prior -does not appear to be acs, possibly demand ischemia -echo c/w non-obstructive hypertrophic CM -plan for mibi for risk stratification prior to dc -given ckd would attempt to continue medical management if mibi is low risk study hocm: -pt has known hx of HOCM with TREMAINE and severe lvot gradient on cath 2011 -he does not appear to have symptoms from HOCM, BP stable and echo here without sig obstruction probably due to chronic beta blockade -per daughter he was rec'd icd but declined in past htn: -stable on current meds cad, hx nstemi: -plan as above -cont home asa, bb, clay -start statin karuna, ckd: -cr near baseline, monitor
[2019-04-19] MEDS: CLOPIDOGREL BISULFATE 75 MG TABLET (FP) PO SCH (10:17)
[2019-04-19] MEDS: NIFEdipine E.R 60 MG TABLET PO SCH (10:17)
[2019-04-19] MEDS: ASPIRIN COATED 81 MG TABLET.EC PO SCH (10:17)
--- NOTE | 2019-04-19 11:28 | PN ---
Progress Note, Physician History of Present Illness: better today more awake and alert - Current Medication List Current Medications: Active Medications Aspirin (Ecotrin -) 81 mg PO DAILY [facility] Last Admin: 04/19/19 10:17 Dose: 81 mg Atorvastatin Calcium (Lipitor -) 10 mg PO HS [facility] Clonidine HCl (Catapres Tts Patch -) 0.1 mg TD Th [facility] Clopidogrel Bisulfate (Plavix -) 75 mg PO DAILY [facility] Last Admin: 04/19/19 10:17 Dose: 75 mg Heparin Sodium (Porcine) (Heparin -) 5,000 unit SQ BID [facility] Last Admin: 04/19/19 10:17 Dose: 5,000 unit Insulin Aspart (Novolog Vial Sliding Scale -) 1 vial SQ [facility]; Protocol Last Admin: 04/19/19 06:29 Dose: 6 units Metoprolol Succinate (Toprol Xl -) 100 mg PO DAILY [facility] Last Admin: 04/19/19 10:16 Dose: 100 mg Nifedipine (Procardia Xl -) 60 mg PO DAILY [facility] Last Admin: 04/19/19 10:17 Dose: 60 mg Sitagliptin Phosphate (Januvia -) 100 mg PO DAILY@0700 [facility] - Objective Vital Signs: Vital Signs Temperature 98.2 F 04/19/19 09:00 Pulse Rate 76 04/19/19 09:00 Respiratory Rate 20 04/19/19 09:00 Blood Pressure 175/88 H 04/19/19 09:00 O2 Sat by Pulse Oximetry (%) 96 04/19/19 09:00 Constitutional: Yes: No Distress, Calm Cardiovascular: Yes: S1, S2 Respiratory: Yes: Regular, CTA Bilaterally Gastrointestinal: Yes: Normal Bowel Sounds, Soft Genitourinary: Yes: Other Musculoskeletal: Yes: Other Extremities: Yes: Other Neurological: Yes: Alert Psychiatric: Yes: Alert Labs: CBC, BMP 04/19/19 06:35 04/19/19 06:35 INR, PTT INR 1.19 (0.83-1.09) H 04/17/19 23:10 Assessment/Plan 1. CKD with acute component 2. htn 3. DM 4. cad plan continue current mgmt physio rest as per the team
--- NOTE | 2019-04-19 16:10 | PN ---
Progress Note, Physician History of Present Illness: Pt seen and examined at bedside. He appears comfortable. he denies shortness of breath. - Current Medication List Current Medications: Active Medications Aspirin (Ecotrin -) 81 mg PO DAILY [facility] Last Admin: 04/19/19 10:17 Dose: 81 mg Atorvastatin Calcium (Lipitor -) 10 mg PO HS [facility] Clonidine HCl (Catapres Tts Patch -) 0.1 mg TD Th [facility] Clopidogrel Bisulfate (Plavix -) 75 mg PO DAILY [facility] Last Admin: 04/19/19 10:17 Dose: 75 mg Heparin Sodium (Porcine) (Heparin -) 5,000 unit SQ BID [facility] Last Admin: 04/19/19 10:17 Dose: 5,000 unit Insulin Aspart (Novolog Vial Sliding Scale -) 1 vial SQ [facility]; Protocol Last Admin: 04/19/19 06:29 Dose: 6 units Metoprolol Succinate (Toprol Xl -) 100 mg PO DAILY [facility] Last Admin: 04/19/19 10:16 Dose: 100 mg Nifedipine (Procardia Xl -) 60 mg PO DAILY [facility] Last Admin: 04/19/19 10:17 Dose: 60 mg Sitagliptin Phosphate (Januvia -) 100 mg PO DAILY@0700 [facility] - Objective Vital Signs: Vital Signs Temperature 98.2 F 04/19/19 09:00 Pulse Rate 76 04/19/19 09:00 Respiratory Rate 20 04/19/19 09:00 Blood Pressure 175/88 H 04/19/19 09:00 O2 Sat by Pulse Oximetry (%) 96 04/19/19 09:00 Constitutional: Yes: Calm Eyes: Yes: Conjunctiva Clear HENT: Yes: Atraumatic Neck: Yes: Supple Cardiovascular: Yes: S1, S2 Respiratory: Yes: CTA Bilaterally Gastrointestinal: Yes: Soft Genitourinary: Yes: WNL Musculoskeletal: Yes: WNL Edema: No Integumentary: Yes: WNL Labs: CBC, BMP 04/19/19 06:35 04/19/19 06:35 INR, PTT INR 1.19 (0.83-1.09) H 04/17/19 23:10 Problem List - Problems (1) CKD (chronic kidney disease) Code(s): N18.9 - CHRONIC KIDNEY DISEASE, UNSPECIFIED Assessment/Plan Current Medications Generic Name Dose Route Start Last Admin Trade Name Freq PRN Reason Stop Dose Admin Aspirin 81 mg 04/19/19 10:00 04/19/19 10:17 Ecotrin - PO 81 mg DAILY [facility] Administration Atorvastatin Calcium 10 mg 04/19/19 22:00 Lipitor - PO HS [facility] Clonidine HCl 0.1 mg 04/18/19 09:45 Catapres Tts Patch - TD Th [facility] Clopidogrel Bisulfate 75 mg 04/18/19 10:00 04/19/19 10:17 Plavix - PO 75 mg DAILY [facility] Administration Heparin Sodium (Porcine) 5,000 unit 04/18/19 23:00 04/19/19 10:17 Heparin - SQ 5,000 unit BID [facility] Administration Insulin Aspart 1 vial 04/18/19 11:00 04/19/19 06:29 Novolog Vial Sliding Scale - SQ 6 units ACHS [facility] Administration Protocol Metoprolol Succinate 100 mg 04/18/19 10:00 04/19/19 10:16 Toprol Xl - PO 100 mg DAILY [facility] Administration Nifedipine 60 mg 04/19/19 10:00 04/19/19 10:17 Procardia Xl - PO 60 mg DAILY [facility] Administration Sitagliptin Phosphate 100 mg 04/18/19 10:00 Januvia - PO DAILY@0700 [facility] Impression 1. CKD with acute component 2. htn 3. DM 4. cad 5. 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
--- NOTE | 2019-04-19 21:49 | PN ---
Progress Note, Physician History of Present Illness: No new changes - Current Medication List Current Medications: Active Medications Aspirin (Ecotrin -) 81 mg PO DAILY [facility] Last Admin: 04/19/19 10:17 Dose: 81 mg Atorvastatin Calcium (Lipitor -) 10 mg PO HS [facility] Clonidine HCl (Catapres Tts Patch -) 0.1 mg TD Th [facility] Clopidogrel Bisulfate (Plavix -) 75 mg PO DAILY [facility] Last Admin: 04/19/19 10:17 Dose: 75 mg Heparin Sodium (Porcine) (Heparin -) 5,000 unit SQ BID [facility] Last Admin: 04/19/19 10:17 Dose: 5,000 unit Insulin Aspart (Novolog Vial Sliding Scale -) 1 vial SQ [facility]; Protocol Last Admin: 04/19/19 17:30 Dose: 12 units Metoprolol Succinate (Toprol Xl -) 100 mg PO DAILY [facility] Last Admin: 04/19/19 10:16 Dose: 100 mg Nifedipine (Procardia Xl -) 60 mg PO DAILY [facility] Last Admin: 04/19/19 10:17 Dose: 60 mg Sitagliptin Phosphate (Januvia -) 100 mg PO DAILY@0700 [facility] - Objective Vital Signs: Vital Signs Temperature 98.9 F 04/19/19 18:00 Pulse Rate 77 04/19/19 18:00 Respiratory Rate 20 04/19/19 18:00 Blood Pressure 118/65 04/19/19 18:00 O2 Sat by Pulse Oximetry (%) 96 04/19/19 09:00 Neck: Yes: WNL, Supple Cardiovascular: Yes: WNL, Regular Rate and Rhythm Respiratory: Yes: WNL, Regular, CTA Bilaterally Gastrointestinal: Yes: WNL, Normal Bowel Sounds, Soft Edema: No Labs: CBC, BMP 04/19/19 06:35 04/19/19 06:35 INR, PTT INR 1.19 (0.83-1.09) H 04/17/19 23:10 Problem List - Problems (1) AMS (altered mental status) Assessment/Plan: Check MRI brain CT scan head unremarkable As per neuro ?OMS vs PD Pt's wbc is normal and afebrile Cultures remain negative Code(s): R41.82 - ALTERED MENTAL STATUS, UNSPECIFIED Qualifiers: Altered mental status type: unspecified Qualified Code(s): R41.82 - Altered mental status, unspecified (2) Acute on chronic renal failure Assessment/Plan: Cont IVF Renal consult Code(s): N17.9 - ACUTE KIDNEY FAILURE, UNSPECIFIED; N18.9 - CHRONIC KIDNEY DISEASE, UNSPECIFIED (3) CAD (coronary artery disease) Assessment/Plan: Cont plavix Code(s): I25.10 - ATHSCL HEART DISEASE OF [place] CORONARY ARTERY W/O ANG PCTRS (4) Elevated troponin Assessment/Plan: Cont to monitor ?Demenad ischemia Possible stress test as per cardio Code(s): R79.89 - OTHER SPECIFIED ABNORMAL FINDINGS OF BLOOD CHEMISTRY (5) Diabetes Assessment/Plan: Cont sliding scale w/ coverage Cont januvia Code(s): E11.9 - TYPE 2 DIABETES MELLITUS WITHOUT COMPLICATIONS (6) Hypertension Assessment/Plan: BP better controlled Cont hydralazine/metoprolol/nifedipine/clonidine Code(s): I10 - ESSENTIAL (PRIMARY) HYPERTENSION
[2019-04-19] MEDS: ATORVASTATIN CA 10 MG TABLET (FP) PO SCH (22:28)
[2019-04-20] MEDS: INSULIN SLIDING SCALE (NOVOLOG) 1 VIAL SQ SCH ×4 (07:34→22:55)
[2019-04-20 08:18] LABS: BASO % 0.3 % (0-2.0); EOS % 0.9 % (0-4.5); HEMATOCRIT 31.1 % (35.4-49); HEMOGLOBIN 9.9 GM/dL (11.7-16.9); LYMPH % 17.5 % (8-40); MCH 23.2 pg (25.7-33.7); MCHC 31.9 g/dl (32.0-35.9); MEAN CELL VOLUME 72.8 fl (80-96); MEAN PLT VOLUME 10.3 fl (7.5-11.1); MONO % 10.4 % (3.8-10.2); NEUT % 70.9 % (42.8-82.8); PLATELET COUNT 234 K/MM3 (134-434); RBC 4.27 M/mm3 (4.00-5.60); RDW 16.8 % (11.9-15.9)
[2019-04-20 08:47] LABS: ALBUMIN 2.6 g/dl (3.4-5.0); BILIRUBIN,TOTAL 0.4 mg/dL (0.2-1); BLOOD UREA NITROGEN 30.5 mg/dL (7-18); CALCIUM 9.6 mg/dL (8.5-10.1); CREATININE 2.3 mg/dL (0.55-1.3); POTASSIUM 4.1 mmol/L (3.5-5.1); TOT PROT 6.8 g/dl (6.4-8.2)
[2019-04-20] MEDS: HEPARIN NA (PORCINE) 5,000 UNITS/ML 1ML VIAL SQ SCH ×2 (09:16→22:58)
[2019-04-20] MEDS: CLOPIDOGREL BISULFATE 75 MG TABLET (FP) PO SCH (09:16)
[2019-04-20] MEDS: ASPIRIN COATED 81 MG TABLET.EC PO SCH (09:16)
[2019-04-20] MEDS: NIFEdipine E.R 60 MG TABLET PO SCH (09:17)
--- NOTE | 2019-04-20 09:49 | PN ---
Progress Note, Physician Chief Complaint: no rwandan History of Present Illness: no cigs - Current Medication List Current Medications: Active Medications Aspirin (Ecotrin -) 81 mg PO DAILY [facility] Last Admin: 04/20/19 09:16 Dose: 81 mg Atorvastatin Calcium (Lipitor -) 10 mg PO HS [facility] Last Admin: 04/19/19 22:28 Dose: 10 mg Clonidine HCl (Catapres Tts Patch -) 0.1 mg TD Q7D [facility] Clopidogrel Bisulfate (Plavix -) 75 mg PO DAILY [facility] Last Admin: 04/20/19 09:16 Dose: 75 mg Heparin Sodium (Porcine) (Heparin -) 5,000 unit SQ BID [facility] Last Admin: 04/20/19 09:16 Dose: 5,000 unit Hydralazine HCl (Apresoline -) 10 mg PO BID [facility] Last Admin: 04/20/19 09:16 Dose: 10 mg Insulin Aspart (Novolog Vial Sliding Scale -) 1 vial SQ [facility]; Protocol Last Admin: 04/20/19 07:34 Dose: 6 units Insulin Detemir (Levemir Vial) 10 units SQ [facility] Metoprolol Succinate (Toprol Xl -) 100 mg PO DAILY [facility] Last Admin: 04/20/19 09:16 Dose: 100 mg Nifedipine (Procardia Xl -) 60 mg PO DAILY [facility] Last Admin: 04/20/19 09:17 Dose: 60 mg Sitagliptin Phosphate (Januvia -) 100 mg PO DAILY@0700 [facility] - Objective Vital Signs: Vital Signs Temperature 99 F 04/20/19 06:00 Pulse Rate 96 H 04/20/19 06:00 Respiratory Rate 20 04/20/19 06:00 Blood Pressure 136/64 04/20/19 06:00 O2 Sat by Pulse Oximetry (%) 96 04/19/19 21:00 Constitutional: Yes: No Distress, Calm Eyes: No: Sclera Icterus HENT: No: Nasal Congestion Cardiovascular: Yes: Regular Rate and Rhythm, JVD, Murmur (3/6 early peaking ESSENCE LLSB, variable in intensity), S1, S2, Other (PMI non diplaced). No: Gallop Respiratory: Yes: Regular, CTA Bilaterally. No: Accessory Muscle Use, Rales, Wheezes Gastrointestinal: Yes: Normal Bowel Sounds, Soft. No: Tenderness Musculoskeletal: Yes: Other (No kyphosis) Extremities: No: Cyanosis Edema: No Integumentary: No: Jaundice Neurological: Yes: Alert. No: Seizure Psychiatric: No: Agitated Labs: CBC, BMP 04/20/19 06:30 04/20/19 06:30 INR, PTT INR 1.19 (0.83-1.09) H 04/17/19 23:10 Assessment/Plan ecg: sr, nl intervals, lvh with repol changes, no sig change prior echo 2016: Severe LVH (1.4/1.8), Nl LV/RV function. TREMAINE with mod-severe eccentric MR. LVOT gradients not mentioned echo 04/08: findings c/w non-obstructive HCM. nl LVEF. nl RV. chordal TREMAINE, trace MR. no peric effusion stress MPI 05/2015: mod inferior, inferolateral and inferoapical reversible defect compatible with mild ischemia. Global HK, mild LV dil. EF 32%. + TID tele: NSR, NSVT x 3b a/p: 84 m hx of cad s/p nstemi and remote pci, HOCM, dm, htn, ckd (cr baseline near 2) here with ams, weakness and fever: ams, weakness, fever (101.1): -ESR 92 -cultures negative, ID following, no ABX rx'd -per ID, primary pos trops, prior h/o CAD/NSTEMI: -trop 1.1 on admit, slowly trending down c/w flat trend that is not likely manufacturers representative of ACS. no cardiac symptoms. ecg not as helpful for diagnosing ischemia due to severe lvh with repol changes, but no change from prior -no sepsis source identified -echo c/w non-obstructive hypertrophic CM--? trop sec to severe LVH +/- hi filling pressures (of note, similar range troponins with flat trend here 2016 admit) -plan for mibi for risk stratification prior to dc -cont ASA, BB, statin -given ckd (hi risk LILIAN) would attempt to continue medical management if mibi is low risk study -ESR 92, CRP pending--no signs of pericarditis. doubt myocarditis with normal LVEF, no chest pain/CHF. troponin appears to be chronic. electrically stable. hocm: -pt has known hx of HOCM with TREMAINE and severe lvot gradient on cath 2011--? if treated -present echo with chordal TREMAINE noted, no obstruction/gradient (on beta blockers) -per daughter he was rec'd icd but declined in past htn: -bp not well controlled -minimize vasodilating meds to avoid provoking dynamic LVOT obstruction -incr metoprolol to 100 am, 50 pm--titrate this agent up preferentially -titrate clonidine as needed next. -cont low dose hydral, nifedipine for now, since he is tolerating with no s/sx of dynamic LVOT obstruction karuna, ckd: -cr reportedly near baseline (no recent values here)--monitor
[2019-04-20] MEDS ORDERED: hydrALAZINE HCL 10 MG TABLET PO SCH ×2 (10:00)
--- NOTE | 2019-04-20 15:44 | PN ---
Progress Note, Physician History of Present Illness: Pt is alert/verbal. Does not speak Eritrean. Now afebrile. No distress noted. - Current Medication List Current Medications: Active Medications Aspirin (Ecotrin -) 81 mg PO DAILY [facility] Last Admin: 04/20/19 09:16 Dose: 81 mg Atorvastatin Calcium (Lipitor -) 10 mg PO HS [facility] Last Admin: 04/19/19 22:28 Dose: 10 mg Clonidine HCl (Catapres Tts Patch -) 0.1 mg TD Q7D [facility] Clopidogrel Bisulfate (Plavix -) 75 mg PO DAILY [facility] Last Admin: 04/20/19 09:16 Dose: 75 mg Heparin Sodium (Porcine) (Heparin -) 5,000 unit SQ BID [facility] Last Admin: 04/20/19 09:16 Dose: 5,000 unit Hydralazine HCl (Apresoline -) 10 mg PO BID [facility] Insulin Aspart (Novolog Vial Sliding Scale -) 1 vial SQ [facility]; Protocol Last Admin: 04/20/19 12:22 Dose: 4 units Insulin Detemir (Levemir Vial) 10 units SQ HS [facility] Metoprolol Succinate (Toprol Xl -) 100 mg PO 0700 [facility] Metoprolol Succinate (Toprol Xl -) 50 mg PO 2200 [facility] Nifedipine (Procardia Xl -) 60 mg PO DAILY [facility] Last Admin: 04/20/19 09:17 Dose: 60 mg Sitagliptin Phosphate (Januvia -) 100 mg PO DAILY@0700 [facility] - Objective Vital Signs: Vital Signs Temperature 98.7 F 04/20/19 14:09 Pulse Rate 81 04/20/19 14:09 Respiratory Rate 20 04/20/19 14:09 Blood Pressure 143/75 04/20/19 14:09 O2 Sat by Pulse Oximetry (%) 96 04/19/19 21:00 Constitutional: Yes: No Distress, Calm Eyes: Yes: Conjunctiva Clear Neck: Yes: Supple Cardiovascular: Yes: Regular Rate and Rhythm Respiratory: Yes: Regular Gastrointestinal: Yes: Normal Bowel Sounds, Soft Genitourinary: Yes: WNL Edema: No Integumentary: Yes: WNL Neurological: Yes: Alert Labs: CBC, BMP 04/20/19 06:30 04/20/19 06:30 INR, PTT INR 1.19 (0.83-1.09) H 04/17/19 23:10 Microbiology 04/17/19 23:10 Blood - Peripheral Venous Blood Culture - Preliminary NO GROWTH OBTAINED AFTER 48 HOURS, INCUBATION TO CONTINUE FOR 3 DAYS. 04/17/19 23:10 Blood - Peripheral Venous Blood Culture - Preliminary NO GROWTH OBTAINED AFTER 48 HOURS, INCUBATION TO CONTINUE FOR 3 DAYS. 04/17/19 23:35 Urine - Urine Clean Catch Urine Culture - Final NO GROWTH OBTAINED 04/18/19 07:20 Blood - Peripheral Venous Blood Parasites Smear - Final - ....Imaging Chest X-ray: Report Reviewed Ultrasound: Report Reviewed Problem List - Problems (1) JONNA (acute kidney injury) Code(s): N17.9 - ACUTE KIDNEY FAILURE, UNSPECIFIED (2) AMS (altered mental status) Code(s): R41.82 - ALTERED MENTAL STATUS, UNSPECIFIED Qualifiers: Altered mental status type: unspecified Qualified Code(s): R41.82 - Altered mental status, unspecified (3) CKD (chronic kidney disease) Code(s): N18.9 - CHRONIC KIDNEY DISEASE, UNSPECIFIED (4) Diabetes Code(s): E11.9 - TYPE 2 DIABETES MELLITUS WITHOUT COMPLICATIONS Assessment/Plan -- Fever appears to have resolved, not on antibiotics -- continue monitor -- Alert, without distress --routine cultures neg., rpr neg., Influenza rapid neg MRI/US results noted
--- NOTE | 2019-04-20 21:38 | PN ---
Progress Note, Physician History of Present Illness: No new changes - Current Medication List Current Medications: Active Medications Aspirin (Ecotrin -) 81 mg PO DAILY [facility] Last Admin: 04/20/19 09:16 Dose: 81 mg Atorvastatin Calcium (Lipitor -) 10 mg PO HS [facility] Last Admin: 04/19/19 22:28 Dose: 10 mg Clonidine HCl (Catapres Tts Patch -) 0.1 mg TD Q7D [facility] Clopidogrel Bisulfate (Plavix -) 75 mg PO DAILY [facility] Last Admin: 04/20/19 09:16 Dose: 75 mg Heparin Sodium (Porcine) (Heparin -) 5,000 unit SQ BID [facility] Last Admin: 04/20/19 09:16 Dose: 5,000 unit Hydralazine HCl (Apresoline -) 10 mg PO BID [facility] Insulin Aspart (Novolog Vial Sliding Scale -) 1 vial SQ [facility]; Protocol Last Admin: 04/20/19 16:33 Dose: 2 units Insulin Detemir (Levemir Vial) 10 units SQ HS [facility] Metoprolol Succinate (Toprol Xl -) 100 mg PO 0700 [facility] Metoprolol Succinate (Toprol Xl -) 50 mg PO 2200 [facility] Nifedipine (Procardia Xl -) 60 mg PO DAILY [facility] Last Admin: 04/20/19 09:17 Dose: 60 mg Sitagliptin Phosphate (Januvia -) 100 mg PO DAILY@0700 [facility] - Objective Vital Signs: Vital Signs Temperature 98.0 F 04/20/19 18:00 Pulse Rate 85 04/20/19 18:00 Respiratory Rate 20 04/20/19 18:00 Blood Pressure 131/74 04/20/19 18:00 O2 Sat by Pulse Oximetry (%) 96 04/20/19 09:00 Neck: Yes: WNL, Supple Cardiovascular: Yes: WNL, Regular Rate and Rhythm Respiratory: Yes: WNL, Regular, CTA Bilaterally Gastrointestinal: Yes: WNL, Normal Bowel Sounds, Soft Edema: No Labs: CBC, BMP 04/20/19 06:30 04/20/19 06:30 INR, PTT INR 1.19 (0.83-1.09) H 04/17/19 23:10 Problem List - Problems (1) AMS (altered mental status) Assessment/Plan: 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 CT scan head unremarkable As per neuro ?[facility] vs PD Pt's wbc is normal and afebrile Cultures remain negative Pt no on lipitor Code(s): R41.82 - ALTERED MENTAL STATUS, UNSPECIFIED Qualifiers: Altered mental status type: unspecified Qualified Code(s): R41.82 - Altered mental status, unspecified (2) Acute on chronic renal failure Assessment/Plan: Cont IVF Renal consult Code(s): N17.9 - ACUTE KIDNEY FAILURE, UNSPECIFIED; N18.9 - CHRONIC KIDNEY DISEASE, UNSPECIFIED (3) CAD (coronary artery disease) Assessment/Plan: Cont plavix Code(s): I25.10 - ATHSCL HEART DISEASE OF [place] CORONARY ARTERY W/O ANG PCTRS (4) Elevated troponin Assessment/Plan: Cont to monitor ?Demenad ischemia Possible stress test as per cardio Code(s): R79.89 - OTHER SPECIFIED ABNORMAL FINDINGS OF BLOOD CHEMISTRY (5) Diabetes Assessment/Plan: Cont sliding scale w/ coverage Cont januvia Code(s): E11.9 - TYPE 2 DIABETES MELLITUS WITHOUT COMPLICATIONS (6) Hypertension Assessment/Plan: BP better controlled Cont hydralazine/metoprolol/nifedipine/clonidine Code(s): I10 - ESSENTIAL (PRIMARY) HYPERTENSION
[2019-04-20] MEDS: hydrALAZINE HCL 10 MG TABLET PO SCH (22:58)
[2019-04-20] MEDS: ATORVASTATIN CA 10 MG TABLET (FP) PO SCH (22:58)
[2019-04-20] MEDS: INSULIN (LEVEMIR) 100 UNITS/ML UNITS SQ SCH (22:58)
[2019-04-21] MEDS: INSULIN SLIDING SCALE (NOVOLOG) 1 VIAL SQ SCH ×4 (07:05→21:26)
[2019-04-21 08:08] LABS: BLOOD UREA NITROGEN 31.8 mg/dL (7-18); CALCIUM 9.2 mg/dL (8.5-10.1); CREATININE 2.2 mg/dL (0.55-1.3)
--- NOTE | 2019-04-21 08:40 | PN ---
Progress Note, Physician Chief Complaint: weakness History of Present Illness: family at bedside, translates denies cp at all, denies sob. no palp, swelling reports pain in R inguinal region radiating down to R thigh for around 4-6 weeks - Current Medication List Current Medications: Active Medications Aspirin (Ecotrin -) 81 mg PO DAILY [facility] Last Admin: 04/20/19 09:16 Dose: 81 mg Atorvastatin Calcium (Lipitor -) 10 mg PO HS [facility] Last Admin: 04/20/19 22:58 Dose: 10 mg Clonidine HCl (Catapres Tts Patch -) 0.1 mg TD Q7D [facility] Clopidogrel Bisulfate (Plavix -) 75 mg PO DAILY [facility] Last Admin: 04/20/19 09:16 Dose: 75 mg Heparin Sodium (Porcine) (Heparin -) 5,000 unit SQ BID [facility] Last Admin: 04/20/19 22:58 Dose: 5,000 unit Hydralazine HCl (Apresoline -) 10 mg PO BID [facility] Last Admin: 04/20/19 22:58 Dose: 10 mg Insulin Aspart (Novolog Vial Sliding Scale -) 1 vial SQ [facility]; Protocol Last Admin: 04/21/19 07:05 Dose: Not Given Insulin Detemir (Levemir Vial) 10 units SQ [facility] Last Admin: 04/20/19 22:58 Dose: 10 units Metoprolol Succinate (Toprol Xl -) 100 mg PO 0700 [facility] Last Admin: 04/21/19 07:07 Dose: 100 mg Metoprolol Succinate (Toprol Xl -) 50 mg PO 2200 [facility] Last Admin: 04/20/19 22:58 Dose: 50 mg Nifedipine (Procardia Xl -) 60 mg PO DAILY [facility] Last Admin: 04/20/19 09:17 Dose: 60 mg Sitagliptin Phosphate (Januvia -) 100 mg PO DAILY@0700 [facility] - Objective Vital Signs: Vital Signs Temperature 98.4 F 04/21/19 06:15 Pulse Rate 74 04/21/19 06:15 Respiratory Rate 04/21/19 06:15 Blood Pressure 166/88 04/21/19 06:15 O2 Sat by Pulse Oximetry (%) 96 04/20/19 21:00 Constitutional: Yes: Well Nourished, No Distress, Calm Cardiovascular: Yes: Regular Rate and Rhythm, Murmur (3/6 brief ESSENCE LLSB/apex), S1, S2. No: JVD, Gallop, S3 Respiratory: Yes: Regular, CTA Bilaterally. No: Accessory Muscle Use, Rales, Wheezes Extremities: Yes: Other (single enlarged LN R inguinal, no mass/induration appreciated in groin or R thigh). No: Cold Edema: No Neurological: Yes: Alert. No: Seizure Psychiatric: No: Agitated Labs: CBC, BMP 04/20/19 06:30 04/21/19 06:15 INR, PTT INR 1.19 (0.83-1.09) H 04/17/19 23:10 Assessment/Plan ecg: sr, nl intervals, lvh with repol changes, no sig change prior echo 2016: Severe LVH (1.4/1.8), Nl LV/RV function. TREMAINE with mod-severe eccentric MR. LVOT gradients not mentioned echo 04/08: findings c/w non-obstructive HCM. nl LVEF. nl RV. chordal TREMAINE, trace MR. no peric effusion stress MPI 05/2015: mod inferior, inferolateral and inferoapical reversible defect compatible with mild ischemia. Global HK, mild LV dil. EF 32%. + TID tele: NSR, PVCs a/p: 84 m hx of cad s/p nstemi and remote pci, HOCM, dm, htn, ckd (cr baseline near 2) here with ams, weakness and fever: ams, weakness, fever (101.1): -ESR 92, CRP 16 -cultures negative, ID following, no ABX rx'd -per ID, primary (? R inguinal/thigh pain and mild LAD red major--informed ID of this history) pos trops, prior h/o CAD/NSTEMI: -trop 1.1 on admit, slowly trending down with flat trend that is not likely inside sales representative of ACS. of note, similar range troponins with flat trend here 2016 admit. -no cardiac symptoms. ecg not as helpful for diagnosing ischemia due to severe lvh with repol changes, but no change from prior -no sepsis source identified -echo c/w non-obstructive hypertrophic CM--? trop sec to severe LVH +/- hi filling pressures -plan for mibi for risk stratification prior to dc (monday) -cont ASA, BB, statin -given ckd (hi risk LILIAN) would attempt to continue medical management if mibi is low risk study -ESR 92, CRP 16--no signs of pericarditis. doubt myocarditis given: normal LVEF , no chest pain/CHF. troponin appears to be chronic. electrically stable. hocm: -pt has known hx of HOCM with TREMAINE and severe lvot gradient on cath 2011--? if treated -present echo with chordal TREMAINE noted, no obstruction/gradient (on beta blockers) -per daughter he was rec'd icd but declined in past htn: -bp not well controlled -minimize vasodilating meds to avoid provoking dynamic LVOT obstruction -incr'd metoprolol to 100 am, 50 pm--titrate this agent up preferentially = bp improved, suboptimal--plan to incr metoprolol to 100 bid tomorrow if not at goals -titrate clonidine as needed next. -cont low dose hydral, nifedipine for now, since he is tolerating with no s/sx of dynamic LVOT obstruction karuna, ckd: -cr reportedly near baseline (no recent values here)--monitor NO INDICATION FOR ONGOING TELE MONITORING
[2019-04-21] MEDS: hydrALAZINE HCL 10 MG TABLET PO SCH ×2 (09:31→21:27)
[2019-04-21] MEDS: ASPIRIN COATED 81 MG TABLET.EC PO SCH (09:32)
[2019-04-21] MEDS: CLOPIDOGREL BISULFATE 75 MG TABLET (FP) PO SCH (09:32)
[2019-04-21] MEDS: HEPARIN NA (PORCINE) 5,000 UNITS/ML 1ML VIAL SQ SCH ×2 (09:32→21:27)
[2019-04-21] MEDS: NIFEdipine E.R 60 MG TABLET PO SCH (09:32)
--- NOTE | 2019-04-21 12:39 | PN ---
Progress Note, Physician History of Present Illness: Pt seen with family at bedside providing translation. He states he has been having Rt groin pain extending down to his knee since February. The pain is intermittent and at it's worse is 8/10 in intensity however he has been walking without difficulty and independent. Pt denies any history of fall or trauma. Admitted with fever 101F and now intermittently low grade (Tmax 99.7F). He denies H/A, neck stiffness, visual or auditory disturbance, sore throat, SOB/ cough, CP, abdominal pain/n/v/d, dysuria, rash or any other specific symptoms. States he had pain in Rt groin to knee earlier today but is currently comfortable. Pt was able to sit up in bed and ambulate to chair today. - Current Medication List Current Medications: Active Medications Aspirin (Ecotrin -) 81 mg PO DAILY [facility] Last Admin: 04/21/19 09:32 Dose: 81 mg Atorvastatin Calcium (Lipitor -) 10 mg PO [facility] Last Admin: 04/20/19 22:58 Dose: 10 mg Clonidine HCl (Catapres Tts Patch -) 0.1 mg TD Q7D [facility] Clopidogrel Bisulfate (Plavix -) 75 mg PO DAILY [facility] Last Admin: 04/21/19 09:32 Dose: 75 mg Heparin Sodium (Porcine) (Heparin -) 5,000 unit SQ BID [facility] Last Admin: 04/21/19 09:32 Dose: 5,000 unit Hydralazine HCl (Apresoline -) 10 mg PO BID [facility] Last Admin: 04/21/19 09:31 Dose: 10 mg Insulin Aspart (Novolog Vial Sliding Scale -) 1 vial SQ [facility]; Protocol Last Admin: 04/21/19 12:06 Dose: Not Given Insulin Detemir (Levemir Vial) 10 units SQ [facility] Last Admin: 04/20/19 22:58 Dose: 10 units Metoprolol Succinate (Toprol Xl -) 100 mg PO 0700 [facility] Last Admin: 04/21/19 07:07 Dose: 100 mg Metoprolol Succinate (Toprol Xl -) 50 mg PO 2200 [facility] Last Admin: 04/20/19 22:58 Dose: 50 mg Nifedipine (Procardia Xl -) 60 mg PO DAILY [facility] Last Admin: 04/21/19 09:32 Dose: 60 mg Sitagliptin Phosphate (Januvia -) 100 mg PO DAILY@0700 [facility] - Objective Vital Signs: Vital Signs Temperature 98 F 04/21/19 09:23 Pulse Rate 82 04/21/19 09:23 Respiratory Rate 20 04/21/19 09:23 Blood Pressure 160/84 04/21/19 09:23 O2 Sat by Pulse Oximetry (%) 96 04/20/19 21:00 Constitutional: Yes: No Distress, Calm Eyes: Yes: Conjunctiva Clear, EOM Intact HENT: Yes: Atraumatic, Normocephalic Neck: Yes: Supple Cardiovascular: Yes: Regular Rate and Rhythm, Murmur Respiratory: Yes: CTA Bilaterally Gastrointestinal: Yes: Normal Bowel Sounds, Soft Genitourinary: Yes: WNL Musculoskeletal: Yes: Other (Pain in Rt groin extending down to Rt knee, + enlarged Rt inguinal LN, no erythema/edema/induration noted) Extremities: Yes: WNL Edema: No Peripheral Pulses WNL: Yes Integumentary: Yes: WNL Neurological: Yes: Alert, Oriented Psychiatric: Yes: Alert Labs: CBC, BMP 04/20/19 06:30 04/21/19 06:15 INR, PTT INR 1.19 (0.83-1.09) H 04/17/19 23:10 Microbiology 04/17/19 23:10 Blood - Peripheral Venous Blood Culture - Preliminary NO GROWTH OBTAINED AFTER 72 HOURS, INCUBATION TO CONTINUE FOR 2 DAYS. 04/17/19 23:10 Blood - Peripheral Venous Blood Culture - Preliminary NO GROWTH OBTAINED AFTER 72 HOURS, INCUBATION TO CONTINUE FOR 2 DAYS. 04/17/19 23:35 Urine - Urine Clean Catch Urine Culture - Final NO GROWTH OBTAINED 04/18/19 07:20 Blood - Peripheral Venous Blood Parasites Smear - Final - ....Imaging Chest X-ray: Report Reviewed Cat Scan: Report Reviewed Ultrasound: Report Reviewed MRI: Report Reviewed Problem List - Problems (1) JONNA (acute kidney injury) Code(s): N17.9 - ACUTE KIDNEY FAILURE, UNSPECIFIED (2) AMS (altered mental status) Code(s): R41.82 - ALTERED MENTAL STATUS, UNSPECIFIED Qualifiers: Altered mental status type: unspecified Qualified Code(s): R41.82 - Altered mental status, unspecified (3) CKD (chronic kidney disease) Code(s): N18.9 - CHRONIC KIDNEY DISEASE, UNSPECIFIED (4) Diabetes Code(s): E11.9 - TYPE 2 DIABETES MELLITUS WITHOUT COMPLICATIONS Assessment/Plan Fever AMS - resolved CAD s/p NSTEMI DM HTN HOCM CKD Rt inguinal/knee pain -- Pt with intermittent low grade fevers, etiology unclear -- wbc normal, routine cultures neg, blood parasite smear neg, RPR neg, Influenza test neg, CXR neg, TTE without vegetations, MRI of Brain without acute findings, Renal/bladder US without acute findings -- ESR/CRP elevated -- Pt c/o intermittent severe Rt inguinal pain radiating to Rt knee intermittently since early February, 1 LN enlarged otherwise no edema/erythema/ induration, able to ambulate -- will order Quantiferon testing, repeat blood cultures -- suggest imaging MRI to assess inguinal/knee pain -- BP slightly elevated otherwise vitals normal, pt fully alert/without distress -- continue monitor off antibiotics for now
[2019-04-21] MEDS: ACETAMINOPHEN 325 MG TABLET (FP) PO PRN (13:17)
--- NOTE | 2019-04-21 17:07 | PN ---
Progress Note, Physician History of Present Illness: BP slightly fluctuating Rt groin pain to rt knee - Current Medication List Current Medications: Active Medications Acetaminophen (Tylenol -) 650 mg PO Q6H PRN PRN Reason: PAIN Last Admin: 04/21/19 13:17 Dose: 650 mg Aspirin (Ecotrin -) 81 mg PO DAILY [facility] Last Admin: 04/21/19 09:32 Dose: 81 mg Atorvastatin Calcium (Lipitor -) 10 mg PO [facility] Last Admin: 04/20/19 22:58 Dose: 10 mg Clonidine HCl (Catapres Tts Patch -) 0.1 mg TD Q7D [facility] Clopidogrel Bisulfate (Plavix -) 75 mg PO DAILY [facility] Last Admin: 04/21/19 09:32 Dose: 75 mg Heparin Sodium (Porcine) (Heparin -) 5,000 unit SQ BID [facility] Last Admin: 04/21/19 09:32 Dose: 5,000 unit Hydralazine HCl (Apresoline -) 10 mg PO BID [facility] Last Admin: 04/21/19 09:31 Dose: 10 mg Insulin Aspart (Novolog Vial Sliding Scale -) 1 vial SQ [facility]; Protocol Last Admin: 04/21/19 16:58 Dose: 8 units Insulin Detemir (Levemir Vial) 10 units SQ [facility] Last Admin: 04/20/19 22:58 Dose: 10 units Metoprolol Succinate (Toprol Xl -) 100 mg PO 0700 [facility] Last Admin: 04/21/19 07:07 Dose: 100 mg Metoprolol Succinate (Toprol Xl -) 50 mg PO 2200 [facility] Last Admin: 04/20/19 22:58 Dose: 50 mg Nifedipine (Procardia Xl -) 60 mg PO DAILY [facility] Last Admin: 04/21/19 09:32 Dose: 60 mg Sitagliptin Phosphate (Januvia -) 100 mg PO DAILY@0700 [facility] - Objective Vital Signs: Vital Signs Temperature 98.8 F 04/21/19 16:09 Pulse Rate 74 04/21/19 16:09 Respiratory Rate 20 04/21/19 16:09 Blood Pressure 144/64 04/21/19 16:09 O2 Sat by Pulse Oximetry (%) 97 04/21/19 09:00 Neck: Yes: WNL, Supple Cardiovascular: Yes: WNL, Regular Rate and Rhythm Respiratory: Yes: WNL, Regular, CTA Bilaterally Gastrointestinal: Yes: WNL, Normal Bowel Sounds, Soft Edema: No Labs: CBC, BMP 04/20/19 06:30 04/21/19 06:15 INR, PTT INR 1.19 (0.83-1.09) H 04/17/19 23:10 Problem List - Problems (1) AMS (altered mental status) Assessment/Plan: 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 CT scan head unremarkable As per neuro ?[facility] vs PD Pt's wbc is normal and afebrile(but has low grade temp to 99.7 today) Cultures remain negative Pt now on lipitor Code(s): R41.82 - ALTERED MENTAL STATUS, UNSPECIFIED Qualifiers: Altered mental status type: unspecified Qualified Code(s): R41.82 - Altered mental status, unspecified (2) Acute on chronic renal failure Assessment/Plan: Renal US unremarkable Code(s): N17.9 - ACUTE KIDNEY FAILURE, UNSPECIFIED; N18.9 - CHRONIC KIDNEY DISEASE, UNSPECIFIED (3) Elevated troponin Assessment/Plan: Cont to monitor ?Demenad ischemia Possible stress test as per cardio Code(s): R79.89 - OTHER SPECIFIED ABNORMAL FINDINGS OF BLOOD CHEMISTRY (4) Diabetes Code(s): E11.9 - TYPE 2 DIABETES MELLITUS WITHOUT COMPLICATIONS (5) Hypertension Assessment/Plan: BP slightly fluctuating Cont hydralazine/metoprolol/nifedipine/clonidine Code(s): I10 - ESSENTIAL (PRIMARY) HYPERTENSION (6) CAD (coronary artery disease) Assessment/Plan: Cont plavix Code(s): I25.10 - ATHSCL HEART DISEASE OF [place] CORONARY ARTERY W/O ANG PCTRS
[2019-04-21] MEDS: ATORVASTATIN CA 10 MG TABLET (FP) PO SCH (21:27)
[2019-04-21] MEDS: INSULIN (LEVEMIR) 100 UNITS/ML UNITS SQ SCH (21:28)
[2019-04-22] MEDS: INSULIN SLIDING SCALE (NOVOLOG) 1 VIAL SQ SCH ×5 (06:05→23:03)
[2019-04-22 07:47] LABS: BASO % 0.7 % (0-2.0); EOS % 3.4 % (0-4.5); HEMOGLOBIN 9.5 GM/dL (11.7-16.9); LYMPH % 20.4 % (8-40); MCH 23.1 pg (25.7-33.7); MCHC 31.8 g/dl (32.0-35.9); MEAN CELL VOLUME 72.6 fl (80-96); MEAN PLT VOLUME 9.7 fl (7.5-11.1); MONO % 12.6 % (3.8-10.2); NEUT % 62.9 % (42.8-82.8); PLATELET COUNT 229 K/MM3 (134-434); RBC 4.14 M/mm3 (4.00-5.60); RDW 16.3 % (11.9-15.9); WHITE BLOOD COUNT 5.3 K/mm3 (4.0-10.0)
[2019-04-22 08:19] LABS: ALBUMIN 2.2 g/dl (3.4-5.0); BILIRUBIN,TOTAL 0.3 mg/dL (0.2-1); BLOOD UREA NITROGEN 30.4 mg/dL (7-18); CALCIUM 9.1 mg/dL (8.5-10.1); POTASSIUM 3.7 mmol/L (3.5-5.1); TOT PROT 5.8 g/dl (6.4-8.2)
[2019-04-22] MEDS ORDERED: PT OWN MED DRAWER 7, Y5N ONE (08:46)
--- NOTE | 2019-04-22 09:03 | CON.ORTH ---
Consult Reason for Consultation:: right knee pain - Past Medical History ONLINE CONTENT COORDINATOR: Yes: CVA Cardio/Vascular: Yes: CAD, HTN, [place] Renal/: Yes: Renal Failure Endocrine: Yes: Diabetes Insipidus - Alcohol/Substance Use Hx Alcohol Use: No - Smoking History Smoking history: Never smoked Have you smoked in the past 12 months: No Home Medications - Allergies Allergies/Adverse Reactions: Allergies Allergy/AdvReac Type Severity Reaction Status Date / Time No Known Allergies Allergy Verified 03/25/16 10:30 - Home Medications Home Medications: Ambulatory Orders Aspirin [Ecotrin] 81 mg PO DAILY 06/11/15 Lisinopril [Prinivil -] 10 mg PO DAILY 06/11/15 Metoprolol Succinate [Toprol Xl] 100 mg PO DAILY 06/11/15 Sitagliptin Phosphate [Januvia] 100 mg PO DAILY 06/11/15 Clonidine Patch [Catapres Tts Patch -] 0.1 mg TD WEEKLY 02/08/16 Clopidogrel Bisulfate [Plavix -] 75 mg PO DAILY 02/08/16 Insulin Aspart [Novolog Flexpen] 14 unit SQ ASDIR 02/08/16 Insulin Glargine,Hum.rec.anlog [Toujeo Solostar] 14 unit SQ ASDIR 02/08/16 Nifedipine [Procardia Xl] 30 mg PO DAILY 02/08/16 Olmesartan Medoxomil [Benicar -] 40 mg PO DAILY 02/08/16 Physical Exam for Ortho Vital Signs: Vital Signs Temperature 98.5 F 04/22/19 02:00 Pulse Rate 78 04/22/19 05:52 Respiratory Rate 20 04/22/19 05:52 Blood Pressure 160/73 04/22/19 05:52 O2 Sat by Pulse Oximetry (%) 98 04/21/19 20:24 Labs: CBC, BMP 04/22/19 06:30 04/22/19 06:30 INR, PTT INR 1.19 (0.83-1.09) H 04/17/19 23:10 - Lower Extremity Hip: Yes: Right, Pain, Other (equal limb lengths, + pain with ROM, nvi) Knee: Yes: Right, Pain, Other (no swelling, + ttp medial jt line, rom 0-120, calf soft, nt, nvi) Assessment/Plan 84 year old Slovak-Creole speaking male with PMH CAD, NSTEMI s/p cath w/o stent , HOCM, DM, HTN, CKD admitted for ams. Pt c/o pain in right hip down to knee for the past 1 month. As per son, there was no injury or trauma. Denies any numbness or tingling. a/p right hip and knee pain, probable djd xrays of right knee and hip PT eval wbat analgesics will follow-up after xrays d/w Dr. Padilla
[2019-04-22] MEDS: CLOPIDOGREL BISULFATE 75 MG TABLET (FP) PO SCH (09:15)
[2019-04-22] MEDS: hydrALAZINE HCL 10 MG TABLET PO SCH ×2 (09:15→23:02)
[2019-04-22] MEDS: NIFEdipine E.R 60 MG TABLET PO SCH (09:16)
[2019-04-22] MEDS: ASPIRIN COATED 81 MG TABLET.EC PO SCH (09:16)
[2019-04-22] MEDS: HEPARIN NA (PORCINE) 5,000 UNITS/ML 1ML VIAL SQ SCH ×2 (09:16→23:03)
--- NOTE | 2019-04-22 11:30 | PN ---
Progress Note, Physician Chief Complaint: alt MS, fever History of Present Illness: lang barrier, no family to translate. appears very comfortable, in bed - Current Medication List Current Medications: Active Medications Acetaminophen (Tylenol -) 650 mg PO Q6H PRN PRN Reason: PAIN Last Admin: 04/21/19 13:17 Dose: 650 mg Aspirin (Ecotrin -) 81 mg PO DAILY [facility] Last Admin: 04/22/19 09:16 Dose: 81 mg Atorvastatin Calcium (Lipitor -) 10 mg PO HS [facility] Last Admin: 04/21/19 21:27 Dose: 10 mg Clonidine HCl (Catapres Tts Patch -) 0.1 mg TD Q7D [facility] Clopidogrel Bisulfate (Plavix -) 75 mg PO DAILY [facility] Last Admin: 04/22/19 09:15 Dose: 75 mg Heparin Sodium (Porcine) (Heparin -) 5,000 unit SQ BID [facility] Last Admin: 04/22/19 09:16 Dose: 5,000 unit Hydralazine HCl (Apresoline -) 10 mg PO BID [facility] Last Admin: 04/22/19 09:15 Dose: 10 mg Insulin Aspart (Novolog Vial Sliding Scale -) 1 vial SQ [facility]; Protocol Last Admin: 04/22/19 07:21 Dose: Not Given Insulin Detemir (Levemir Vial) 10 units SQ [facility] Last Admin: 04/21/19 21:28 Dose: 10 units Metoprolol Succinate (Toprol Xl -) 100 mg PO BID [facility] Nifedipine (Procardia Xl -) 60 mg PO DAILY [facility] Last Admin: 04/22/19 09:16 Dose: 60 mg Sitagliptin Phosphate (Januvia -) 100 mg PO DAILY@0700 [facility] - Objective Vital Signs: Vital Signs Temperature 99.1 F 04/22/19 09:21 Pulse Rate 79 04/22/19 09:21 Respiratory Rate 19 04/22/19 09:21 Blood Pressure 167/98 04/22/19 09:21 O2 Sat by Pulse Oximetry (%) 98 04/21/19 20:24 Constitutional: Yes: Well Nourished, No Distress, Calm Cardiovascular: Yes: Regular Rate and Rhythm, Murmur (brief ESSENCE apex), S1, S2. No: JVD, Gallop Respiratory: Yes: Regular, CTA Bilaterally. No: Accessory Muscle Use, Rales, Wheezes Extremities: No: Cold Edema: No Neurological: Yes: Alert. No: Seizure Psychiatric: No: Agitated Labs: CBC, BMP 04/22/19 06:30 04/22/19 06:30 INR, PTT INR 1.19 (0.83-1.09) H 04/17/19 23:10 Assessment/Plan ecg: sr, nl intervals, lvh with repol changes, no sig change prior echo 2016: Severe LVH (1.4/1.8), Nl LV/RV function. TREMAINE with mod-severe eccentric MR. LVOT gradients not mentioned echo 04/08: findings c/w non-obstructive HCM. nl LVEF. nl RV. chordal TREMAINE, trace MR. no peric effusion stress MPI 05/2015: mod inferior, inferolateral and inferoapical reversible defect compatible with mild ischemia. Global HK, mild LV dil. EF 32%. + TID a/p: 84 m hx of cad s/p nstemi and remote pci, HOCM, dm, htn, ckd (cr baseline near 2) here with ams, weakness and fever: ams, weakness, fever (101.1), R hip/groin pain: -ESR 92, CRP 16 -cultures negative, ID following, no ABX rx'd -ID, ortho consulting--w/u underway pos trops, prior h/o CAD/NSTEMI: -trop 1.1 on admit, slowly trending down with flat trend that is not likely billing representative of ACS. of note, similar range troponins with flat trend here 2016 admit. -no cardiac symptoms. ecg not as helpful for diagnosing ischemia due to severe lvh with repol changes, but no change from prior -no sepsis source identified -echo c/w non-obstructive hypertrophic CM--? trop sec to severe LVH +/- hi filling pressures -plan for mibi for risk stratification today -cont ASA, BB, statin -given ckd (hi risk LILIAN) would attempt to continue medical management if mibi is low risk study -ESR 92, CRP 16--no signs of pericarditis. doubt myocarditis given: normal LVEF , no chest pain/CHF. troponin appears to be chronic. electrically stable. hocm: -pt has known hx of HOCM with TREMAINE and severe lvot gradient on cath 2011--? if treated -present echo with chordal TREMAINE noted, no obstruction/gradient (on beta blockers) -per daughter he was rec'd icd but declined in past htn: -bp not well controlled, though improved with titration of metopr -minimize vasodilating meds to avoid provoking dynamic LVOT obstruction -incr metoprolol to 100 bid. -titrate clonidine as needed next. -cont low dose hydral, nifedipine for now, since he is tolerating with no s/sx of dynamic LVOT obstruction karuna, ckd: -cr reportedly near baseline (no recent values here)--monitor OFF TELE
--- NOTE | 2019-04-22 16:29 | PN ---
Progress Note, Physician - Current Medication List Current Medications: Active Medications Acetaminophen (Tylenol -) 650 mg PO Q6H PRN PRN Reason: PAIN Last Admin: 04/21/19 13:17 Dose: 650 mg Aspirin (Ecotrin -) 81 mg PO DAILY [facility] Last Admin: 04/22/19 09:16 Dose: 81 mg Atorvastatin Calcium (Lipitor -) 10 mg PO HS [facility] Last Admin: 04/21/19 21:27 Dose: 10 mg Clonidine HCl (Catapres Tts Patch -) 0.1 mg TD Q7D [facility] Clopidogrel Bisulfate (Plavix -) 75 mg PO DAILY [facility] Last Admin: 04/22/19 09:15 Dose: 75 mg Heparin Sodium (Porcine) (Heparin -) 5,000 unit SQ BID [facility] Last Admin: 04/22/19 09:16 Dose: 5,000 unit Hydralazine HCl (Apresoline -) 10 mg PO BID [facility] Last Admin: 04/22/19 09:15 Dose: 10 mg Insulin Aspart (Novolog Vial Sliding Scale -) 1 vial SQ [facility]; Protocol Last Admin: 04/22/19 13:17 Dose: Not Given Insulin Detemir (Levemir Vial) 10 units SQ [facility] Last Admin: 04/21/19 21:28 Dose: 10 units Metoprolol Succinate (Toprol Xl -) 100 mg PO BID [facility] Nifedipine (Procardia Xl -) 60 mg PO DAILY [facility] Last Admin: 04/22/19 09:16 Dose: 60 mg Sitagliptin Phosphate (Januvia -) 100 mg PO DAILY@0700 [facility] - Objective Vital Signs: Vital Signs Temperature 98.2 F 04/22/19 14:00 Pulse Rate 81 04/22/19 14:00 Respiratory Rate 20 04/22/19 14:00 Blood Pressure 146/86 04/22/19 14:00 O2 Sat by Pulse Oximetry (%) 98 04/22/19 09:00 Labs: CBC, BMP 04/22/19 06:30 04/22/19 06:30 INR, PTT INR 1.19 (0.83-1.09) H 04/17/19 23:10
--- NOTE | 2019-04-22 18:51 | PN ---
Progress Note, Physician History of Present Illness: Pt seen and examined at bedside. He is awake and appears comfortable. - Current Medication List Current Medications: Active Medications Acetaminophen (Tylenol -) 650 mg PO Q6H PRN PRN Reason: PAIN Last Admin: 04/21/19 13:17 Dose: 650 mg Aspirin (Ecotrin -) 81 mg PO DAILY [facility] Last Admin: 04/22/19 09:16 Dose: 81 mg Atorvastatin Calcium (Lipitor -) 10 mg PO HS [facility] Last Admin: 04/21/19 21:27 Dose: 10 mg Clonidine HCl (Catapres Tts Patch -) 0.1 mg TD Q7D [facility] Clopidogrel Bisulfate (Plavix -) 75 mg PO DAILY [facility] Last Admin: 04/22/19 09:15 Dose: 75 mg Heparin Sodium (Porcine) (Heparin -) 5,000 unit SQ BID [facility] Last Admin: 04/22/19 09:16 Dose: 5,000 unit Hydralazine HCl (Apresoline -) 10 mg PO BID [facility] Last Admin: 04/22/19 09:15 Dose: 10 mg Insulin Aspart (Novolog Vial Sliding Scale -) 1 vial SQ [facility]; Protocol Last Admin: 04/22/19 17:28 Dose: 6 units Insulin Detemir (Levemir Vial) 10 units SQ [facility] Last Admin: 04/21/19 21:28 Dose: 10 units Metoprolol Succinate (Toprol Xl -) 100 mg PO BID [facility] Nifedipine (Procardia Xl -) 60 mg PO DAILY [facility] Last Admin: 04/22/19 09:16 Dose: 60 mg Sitagliptin Phosphate (Januvia -) 100 mg PO DAILY@0700 [facility] - Objective Vital Signs: Vital Signs Temperature 98.7 F 04/22/19 17:15 Pulse Rate 80 04/22/19 17:15 Respiratory Rate 20 04/22/19 17:15 Blood Pressure 149/77 04/22/19 17:15 O2 Sat by Pulse Oximetry (%) 98 04/22/19 09:00 Constitutional: Yes: Calm Eyes: Yes: Conjunctiva Clear HENT: Yes: Atraumatic Neck: Yes: Supple Cardiovascular: Yes: S1, S2 Respiratory: Yes: CTA Bilaterally Gastrointestinal: Yes: Soft Genitourinary: Yes: WNL Musculoskeletal: Yes: WNL Edema: No Neurological: Yes: Oriented Labs: CBC, BMP 04/22/19 06:30 04/22/19 06:30 INR, PTT INR 1.19 (0.83-1.09) H 04/17/19 23:10 Problem List - Problems (1) CKD (chronic kidney disease) Code(s): N18.9 - CHRONIC KIDNEY DISEASE, UNSPECIFIED Assessment/Plan Current Medications Generic Name Dose Route Start Last Admin Trade Name Freq PRN Reason Stop Dose Admin Acetaminophen 650 mg 04/21/19 12:55 04/21/19 13:17 Tylenol - PO 650 mg Q6H PRN Administration PAIN Aspirin 81 mg 04/19/19 10:00 04/22/19 09:16 Ecotrin - PO 81 mg DAILY SYDNEE Administration Atorvastatin Calcium 10 mg 04/19/19 22:00 04/21/19 21:27 Lipitor - PO 10 mg HS SYDNEE Administration Clonidine HCl 0.1 mg 04/25/19 10:00 Catapres Tts Patch - TD Q7D [facility] Clopidogrel Bisulfate 75 mg 04/18/19 10:00 04/22/19 09:15 Plavix - PO 75 mg DAILY SYDNEE Administration Heparin Sodium (Porcine) 5,000 unit 04/18/19 23:00 04/22/19 09:16 Heparin - SQ 5,000 unit BID SYDNEE Administration Hydralazine HCl 10 mg 04/20/19 22:00 04/22/19 09:15 Apresoline - PO 10 mg BID SYDNEE Administration Insulin Aspart 1 vial 04/18/19 11:00 04/22/19 17:28 Novolog Vial Sliding Scale - SQ 6 units ACHS SYDNEE Administration Protocol Insulin Detemir 10 units 04/20/19 22:00 04/21/19 21:28 Levemir Vial SQ 10 units HS SYDNEE Administration Metoprolol Succinate 100 mg 04/22/19 22:00 Toprol Xl - PO BID [facility] Nifedipine 60 mg 04/19/19 10:00 04/22/19 09:16 Procardia Xl - PO 60 mg DAILY [facility]EE Administration Sitagliptin Phosphate 100 mg 04/18/19 10:00 Januvia - PO DAILY@0700 [facility] Impression 1. CKD with acute component 2. htn 3. DM 4. cad 5. elevated troponin 6. 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
[2019-04-22] MEDS ORDERED: DEXTROSE 5%-WATER - 1,000 ML with POTASSIUM CHLORIDE 10 MEQ IV SCH (19:00)
--- NOTE | 2019-04-22 21:50 | PN ---
Progress Note, Physician History of Present Illness: No new complaints Refused stress test today - Current Medication List Current Medications: Active Medications Acetaminophen (Tylenol -) 650 mg PO Q6H PRN PRN Reason: PAIN Last Admin: 04/21/19 13:17 Dose: 650 mg Aspirin (Ecotrin -) 81 mg PO DAILY [facility] Last Admin: 04/22/19 09:16 Dose: 81 mg Atorvastatin Calcium (Lipitor -) 10 mg PO HS [facility] Last Admin: 04/21/19 21:27 Dose: 10 mg Clonidine HCl (Catapres Tts Patch -) 0.1 mg TD Q7D [facility] Clopidogrel Bisulfate (Plavix -) 75 mg PO DAILY [facility] Last Admin: 04/22/19 09:15 Dose: 75 mg Heparin Sodium (Porcine) (Heparin -) 5,000 unit SQ BID [facility] Last Admin: 04/22/19 09:16 Dose: 5,000 unit Hydralazine HCl (Apresoline -) 10 mg PO BID [facility] Last Admin: 04/22/19 09:15 Dose: 10 mg Potassium Chloride 10 meq/ (Dextrose) 1,005 mls @ 40 mls/hr IV ASDIR [facility] Insulin Aspart (Novolog Vial Sliding Scale -) 1 vial SQ [facility]; Protocol Last Admin: 04/22/19 17:28 Dose: 6 units Insulin Detemir (Levemir Vial) 10 units SQ [facility] Last Admin: 04/21/19 21:28 Dose: 10 units Metoprolol Succinate (Toprol Xl -) 100 mg PO BID [facility] Nifedipine (Procardia Xl -) 60 mg PO DAILY [facility] Last Admin: 04/22/19 09:16 Dose: 60 mg Sitagliptin Phosphate (Januvia -) 100 mg PO DAILY@0700 [facility] - Objective Vital Signs: Vital Signs Temperature 98.7 F 04/22/19 17:15 Pulse Rate 80 04/22/19 17:15 Respiratory Rate 20 04/22/19 17:15 Blood Pressure 149/77 04/22/19 17:15 O2 Sat by Pulse Oximetry (%) 98 04/22/19 09:00 Neck: Yes: WNL, Supple Cardiovascular: Yes: WNL, Regular Rate and Rhythm Respiratory: Yes: WNL, Regular, CTA Bilaterally Gastrointestinal: Yes: WNL, Normal Bowel Sounds, Soft Labs: CBC, BMP 04/22/19 06:30 02/03/20 06:30 INR, PTT INR 1.19 (0.83-1.09) H 04/17/19 23:10 Problem List - Problems (1) AMS (altered mental status) Assessment/Plan: 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 CT scan head unremarkable As per neuro ?[facility] vs PD Pt's wbc is normal and afebrile Cultures remain negative Pt now on lipitor Code(s): R41.82 - ALTERED MENTAL STATUS, UNSPECIFIED Qualifiers: Altered mental status type: unspecified Qualified Code(s): R41.82 - Altered mental status, unspecified (2) Acute on chronic renal failure Assessment/Plan: Renal US unremarkable Cont IVF Check labs Code(s): N17.9 - ACUTE KIDNEY FAILURE, UNSPECIFIED; N18.9 - CHRONIC KIDNEY DISEASE, UNSPECIFIED (3) Elevated troponin Assessment/Plan: Cont to monitor ?Demenad ischemia Refused stress test DC planning PT eval Code(s): R79.89 - OTHER SPECIFIED ABNORMAL FINDINGS OF BLOOD CHEMISTRY (4) Diabetes Assessment/Plan: Cont sliding scale w/ coverage Cont januvia Code(s): E11.9 - TYPE 2 DIABETES MELLITUS WITHOUT COMPLICATIONS (5) Hypertension Assessment/Plan: BP slightly fluctuating Cont hydralazine/metoprolol/nifedipine/clonidine Code(s): I10 - ESSENTIAL (PRIMARY) HYPERTENSION (6) CAD (coronary artery disease) Assessment/Plan: Cont plavix Code(s): I25.10 - ATHSCL HEART DISEASE OF [place] CORONARY ARTERY W/O ANG PCTRS
[2019-04-22] MEDS: ATORVASTATIN CA 10 MG TABLET (FP) PO SCH (23:02)
[2019-04-22] MEDS: INSULIN (LEVEMIR) 100 UNITS/ML UNITS SQ SCH (23:04)
[2019-04-22] MEDS: ACETAMINOPHEN 325 MG TABLET (FP) PO PRN (23:07)
[2019-04-23] MEDS: ACETAMINOPHEN 325 MG TABLET (FP) PO PRN (06:47)
[2019-04-23] MEDS: INSULIN SLIDING SCALE (NOVOLOG) 1 VIAL SQ SCH ×4 (06:48→21:32)
[2019-04-23 07:19] LABS: ALBUMIN 2.3 g/dl (3.4-5.0); BILIRUBIN,TOTAL 0.5 mg/dL (0.2-1); BLOOD UREA NITROGEN 25.9 mg/dL (7-18); CALCIUM 9.1 mg/dL (8.5-10.1); CREATININE 1.9 mg/dL (0.55-1.3); POTASSIUM 4.1 mmol/L (3.5-5.1)
[2019-04-23] MEDS: HEPARIN NA (PORCINE) 5,000 UNITS/ML 1ML VIAL SQ SCH ×2 (09:23→21:34)
[2019-04-23] MEDS: NIFEdipine E.R 60 MG TABLET PO SCH (09:24)
[2019-04-23] MEDS: CLOPIDOGREL BISULFATE 75 MG TABLET (FP) PO SCH (09:24)
[2019-04-23] MEDS: hydrALAZINE HCL 10 MG TABLET PO SCH ×2 (09:24→21:31)
[2019-04-23] MEDS: ASPIRIN COATED 81 MG TABLET.EC PO SCH (09:25)
[2019-04-23] MEDS ORDERED: hydrALAZINE HCL 10 MG TABLET PO SCH ×2 (11:47→12:00)
--- NOTE | 2019-04-23 11:49 | PN ---
Progress Note (short form) - Note Progress Note: s: appears comfortable Current Medications Acetaminophen (Tylenol -) 650 mg PO Q6H PRN PRN Reason: PAIN Last Admin: 04/23/19 06:47 Dose: 650 mg Aspirin (Ecotrin -) 81 mg PO DAILY [facility] Last Admin: 04/23/19 09:25 Dose: 81 mg Atorvastatin Calcium (Lipitor -) 10 mg PO HS [facility] Last Admin: 04/22/19 23:02 Dose: 10 mg Clonidine HCl (Catapres Tts Patch -) 0.1 mg TD Q7D [facility] Clopidogrel Bisulfate (Plavix -) 75 mg PO DAILY [facility] Last Admin: 04/23/19 09:24 Dose: 75 mg Heparin Sodium (Porcine) (Heparin -) 5,000 unit SQ BID [facility] Last Admin: 04/23/19 09:23 Dose: 5,000 unit Hydralazine HCl (Apresoline -) 10 mg PO BID [facility] Last Admin: 04/23/19 09:24 Dose: 10 mg Potassium Chloride 10 meq/ (Dextrose) 1,005 mls @ 40 mls/hr IV ASDIR [facility] Last Admin: 04/22/19 23:02 Dose: 40 mls/hr Insulin Aspart (Novolog Vial Sliding Scale -) 1 vial SQ [facility]; Protocol Last Admin: 04/23/19 11:24 Dose: 6 units Insulin Detemir (Levemir Vial) 10 units SQ [facility] Last Admin: 04/22/19 23:04 Dose: Not Given Metoprolol Succinate (Toprol Xl -) 100 mg PO BID [facility] Last Admin: 04/23/19 09:24 Dose: 100 mg Nifedipine (Procardia Xl -) 60 mg PO DAILY [facility] Last Admin: 04/23/19 09:24 Dose: 60 mg Sitagliptin Phosphate (Januvia -) 100 mg PO DAILY@0700 [facility] Vital Signs Period Temp Pulse Resp BP Sys/Guerrero Pulse Ox Last 24 Hr 98 F-98.7 F 78-81 18-20 128-188/74-94 Constitutional: Yes: Well Nourished, No Distress, Calm Cardiovascular: Yes: Regular Rate and Rhythm, Murmur (brief ESSENCE apex), S1, S2. No: JVD, Gallop Respiratory: Yes: Regular, CTA Bilaterally. No: Accessory Muscle Use, Rales, Wheezes Extremities: No: Cold Edema: No Neurological: Yes: Alert. No: Seizure Psychiatric: No: Agitated no jaundice, diaphoresis Assessment/Plan ecg: sr, nl intervals, lvh with repol changes, no sig change prior echo 2016: Severe LVH (1.4/1.8), Nl LV/RV function. TREMAINE with mod-severe eccentric MR. LVOT gradients not mentioned echo 04/08: findings c/w non-obstructive HCM. nl LVEF. nl RV. chordal TREMAINE, trace MR. no peric effusion stress MPI 05/2015: mod inferior, inferolateral and inferoapical reversible defect compatible with mild ischemia. Global HK, mild LV dil. EF 32%. + TID a/p: 84 m hx of cad s/p nstemi and remote pci, HOCM, dm, htn, ckd (cr baseline near 2) here with ams, weakness and fever: ams, weakness, fever (101.1), R hip/groin pain: -ESR 92, CRP 16 -cultures negative, ID following, no ABX rx'd -workup per ID, ortho pos trops, prior h/o CAD/NSTEMI: -trop 1.1 on admit, slowly trending down with flat trend that is not likely sales promotion representative of ACS. of note, similar range troponins with flat trend here 2016 admit. -no cardiac symptoms. ecg not as helpful for diagnosing ischemia due to severe lvh with repol changes, but no change from prior -no sepsis source identified -echo c/w non-obstructive hypertrophic CM--? trop sec to severe LVH +/- hi filling pressures -planned for mibi for risk stratification - patient and family refused mibi -cont ASA, BB, statin for medical management -ESR 92, CRP 16--no signs of pericarditis. doubt myocarditis given: normal LVEF , no chest pain/CHF. troponin appears to be chronic. electrically stable. hocm: -pt has known hx of HOCM with TREMAINE and severe lvot gradient on cath 2011--? if treated -present echo with chordal TREMAINE noted, no obstruction/gradient (on beta blockers) -per daughter he was rec'd icd but declined in past htn: -bp not well controlled, though improved with titration of metoprolol - increased to 100 mg BID yesterday, continue -minimize vasodilating meds to avoid provoking dynamic LVOT obstruction -if BP remains elevated, titrate clonidine next. -cont low dose hydral, nifedipine for now, since he is tolerating with no s/sx of dynamic LVOT obstruction karuna, ckd: -cr reportedly near baseline (no recent values here)--monitor
--- NOTE | 2019-04-23 14:39 | PN ---
Progress Note, Physician - Current Medication List Current Medications: Active Medications Acetaminophen (Tylenol -) 650 mg PO Q6H PRN PRN Reason: PAIN Last Admin: 04/23/19 06:47 Dose: 650 mg Aspirin (Ecotrin -) 81 mg PO DAILY [facility] Last Admin: 04/23/19 09:25 Dose: 81 mg Atorvastatin Calcium (Lipitor -) 10 mg PO HS [facility] Last Admin: 04/22/19 23:02 Dose: 10 mg Clonidine HCl (Catapres Tts Patch -) 0.1 mg TD Q7D [facility] Clopidogrel Bisulfate (Plavix -) 75 mg PO DAILY [facility] Last Admin: 04/23/19 09:24 Dose: 75 mg Heparin Sodium (Porcine) (Heparin -) 5,000 unit SQ BID [facility] Last Admin: 04/23/19 09:23 Dose: 5,000 unit Hydralazine HCl (Apresoline -) 10 mg PO BID [facility] Last Admin: 04/23/19 13:50 Dose: Not Given Potassium Chloride 10 meq/ (Dextrose) 1,005 mls @ 40 mls/hr IV ASDIR [facility] Last Admin: 04/22/19 23:02 Dose: 40 mls/hr Insulin Aspart (Novolog Vial Sliding Scale -) 1 vial SQ [facility]; Protocol Last Admin: 04/23/19 11:24 Dose: 6 units Insulin Detemir (Levemir Vial) 10 units SQ [facility] Last Admin: 04/22/19 23:04 Dose: Not Given Metoprolol Succinate (Toprol Xl -) 100 mg PO BID [facility] Last Admin: 04/23/19 09:24 Dose: 100 mg Nifedipine (Procardia Xl -) 60 mg PO DAILY [facility] Last Admin: 04/23/19 09:24 Dose: 60 mg Sitagliptin Phosphate (Januvia -) 100 mg PO DAILY@0700 [facility] - Objective Vital Signs: Vital Signs Temperature 98 F 04/23/19 10:00 Pulse Rate 80 04/23/19 10:00 Respiratory Rate 20 04/23/19 10:00 Blood Pressure 188/94 H 04/23/19 10:00 O2 Sat by Pulse Oximetry (%) 98 04/23/19 09:00 Labs: CBC, BMP 04/22/19 06:30 04/23/19 05:58 INR, PTT INR 1.19 (0.83-1.09) H 04/17/19 23:10
--- NOTE | 2019-04-23 15:18 | PN ---
Progress Note, Physician History of Present Illness: Pt seen and examined at bedside. No new events. - Current Medication List Current Medications: Active Medications Acetaminophen (Tylenol -) 650 mg PO Q6H PRN PRN Reason: PAIN Last Admin: 04/23/19 06:47 Dose: 650 mg Aspirin (Ecotrin -) 81 mg PO DAILY [facility] Last Admin: 04/23/19 09:25 Dose: 81 mg Atorvastatin Calcium (Lipitor -) 10 mg PO HS [facility] Last Admin: 04/22/19 23:02 Dose: 10 mg Clonidine HCl (Catapres Tts Patch -) 0.1 mg TD Q7D [facility] Clopidogrel Bisulfate (Plavix -) 75 mg PO DAILY [facility] Last Admin: 04/23/19 09:24 Dose: 75 mg Heparin Sodium (Porcine) (Heparin -) 5,000 unit SQ BID [facility] Last Admin: 04/23/19 09:23 Dose: 5,000 unit Hydralazine HCl (Apresoline -) 10 mg PO BID [facility] Last Admin: 04/23/19 13:50 Dose: Not Given Potassium Chloride 10 meq/ (Dextrose) 1,005 mls @ 40 mls/hr IV ASDIR [facility] Last Admin: 04/22/19 23:02 Dose: 40 mls/hr Insulin Aspart (Novolog Vial Sliding Scale -) 1 vial SQ [facility]; Protocol Last Admin: 04/23/19 11:24 Dose: 6 units Insulin Detemir (Levemir Vial) 10 units SQ [facility] Last Admin: 04/22/19 23:04 Dose: Not Given Metoprolol Succinate (Toprol Xl -) 100 mg PO BID [facility] Last Admin: 04/23/19 09:24 Dose: 100 mg Nifedipine (Procardia Xl -) 60 mg PO DAILY [facility] Last Admin: 04/23/19 09:24 Dose: 60 mg Sitagliptin Phosphate (Januvia -) 100 mg PO DAILY@0700 [facility] - Objective Vital Signs: Vital Signs Temperature 98 F 04/23/19 10:00 Pulse Rate 80 04/23/19 10:00 Respiratory Rate 20 04/23/19 10:00 Blood Pressure 188/94 H 04/23/19 10:00 O2 Sat by Pulse Oximetry (%) 98 04/23/19 09:00 Constitutional: Yes: Calm Eyes: Yes: Conjunctiva Clear HENT: Yes: Atraumatic Neck: Yes: Supple Cardiovascular: Yes: S1, S2 Respiratory: Yes: CTA Bilaterally Gastrointestinal: Yes: Soft Genitourinary: Yes: WNL Edema: No Labs: CBC, BMP 04/22/19 06:30 04/23/19 05:58 INR, PTT INR 1.19 (0.83-1.09) H 04/17/19 23:10 Problem List - Problems (1) CKD (chronic kidney disease) Code(s): N18.9 - CHRONIC KIDNEY DISEASE, UNSPECIFIED Assessment/Plan Current Medications Generic Name Dose Route Start Last Admin Trade Name Freq PRN Reason Stop Dose Admin Acetaminophen 650 mg 04/21/19 12:55 04/23/19 06:47 Tylenol - PO 650 mg Q6H PRN Administration PAIN Aspirin 81 mg 04/19/19 10:00 04/23/19 09:25 Ecotrin - PO 81 mg DAILY [facility] Administration Atorvastatin Calcium 10 mg 04/19/19 22:00 04/22/19 23:02 Lipitor - PO 10 mg HS [facility] Administration Clonidine HCl 0.1 mg 04/25/19 10:00 Catapres Tts Patch - TD Q7D [facility] Clopidogrel Bisulfate 75 mg 04/18/19 10:00 04/23/19 09:24 Plavix - PO 75 mg DAILY [facility] Administration Heparin Sodium (Porcine) 5,000 unit 04/18/19 23:00 04/23/19 09:23 Heparin - SQ 5,000 unit BID [facility] Administration Hydralazine HCl 10 mg 04/23/19 12:00 04/23/19 13:50 Apresoline - PO Not Given BID [facility] Potassium Chloride 10 meq/ 1,005 mls @ 40 mls/hr 04/22/19 19:00 04/22/19 23: 02 Dextrose IV 40 mls/hr ASDIR [facility] Administration Insulin Aspart 1 vial 04/18/19 11:00 04/23/19 11:24 Novolog Vial Sliding Scale - SQ 6 units ACHS [facility] Administration Protocol Insulin Detemir 10 units 04/20/19 22:00 04/22/19 23:04 Levemir Vial SQ Not Given HS [facility] Metoprolol Succinate 100 mg 04/22/19 22:00 04/23/19 09:24 Toprol Xl - PO 100 mg BID [facility] Administration Nifedipine 60 mg 04/19/19 10:00 04/23/19 09:24 Procardia Xl - PO 60 mg DAILY [facility] Administration Sitagliptin Phosphate 100 mg 04/18/19 10:00 Januvia - PO DAILY@0700 [facility] Impression 1. CKD with acute component 2. htn 3. DM 4. cad 5. elevated troponin 6. hypernatremia Plan - sodium improved - can d/c fluids - pt tolerating diet - renal function stable - will need outpt workup - cardio workup in progress
[2019-04-23] MEDS ORDERED: ACETAMINOPHEN 325 MG TABLET (FP) PO PRN (18:19)
[2019-04-23] MEDS ORDERED: INSULIN (NOVOLOG) ASPART 100 UNITS/ML 10ML VIAL ONE (20:38)
[2019-04-23] MEDS ORDERED: ATORVASTATIN CA 10 MG TABLET (FP) PO SCH (22:00)
[2019-04-23] MEDS ORDERED: INSULIN (LEVEMIR) 100 UNITS/ML UNITS SQ SCH (22:00)
--- NOTE | 2019-04-23 22:11 | PN ---
Progress Note, Physician History of Present Illness: No new complaints - Current Medication List Current Medications: Active Medications Acetaminophen (Tylenol -) 650 mg PO Q6H PRN PRN Reason: PAIN Aspirin (Ecotrin -) 81 mg PO DAILY [facility] Atorvastatin Calcium (Lipitor -) 10 mg PO HS [facility] Last Admin: 04/23/19 21:31 Dose: 10 mg Clonidine HCl (Catapres Tts Patch -) 0.1 mg TD Q7D [facility] Clopidogrel Bisulfate (Plavix -) 75 mg PO DAILY [facility] Heparin Sodium (Porcine) (Heparin -) 5,000 unit SQ BID [facility] Last Admin: 04/23/19 21:34 Dose: 5,000 unit Hydralazine HCl (Apresoline -) 10 mg PO BID [facility] Last Admin: 04/23/19 21:31 Dose: 10 mg Insulin Aspart (Novolog Vial Sliding Scale -) 1 vial SQ [facility]; Protocol Last Admin: 04/23/19 21:32 Dose: 6 units Insulin Detemir (Levemir Vial) 10 units SQ HS [facility] Last Admin: 04/23/19 21:32 Dose: 10 units Metoprolol Succinate (Toprol Xl -) 100 mg PO BID [facility] Last Admin: 04/23/19 21:31 Dose: 100 mg Nifedipine (Procardia Xl -) 60 mg PO DAILY [facility] Sitagliptin Phosphate (Januvia -) 50 mg PO DAILY@0700 [facility] - Objective Vital Signs: Vital Signs Temperature 98.9 F 04/23/19 20:02 Pulse Rate 78 04/23/19 20:02 Respiratory Rate 20 04/23/19 20:02 Blood Pressure 158/77 04/23/19 20:02 O2 Sat by Pulse Oximetry (%) 98 04/23/19 09:00 Neck: Yes: WNL, Supple Cardiovascular: Yes: WNL, Regular Rate and Rhythm Respiratory: Yes: WNL, Regular, CTA Bilaterally Gastrointestinal: Yes: WNL, Normal Bowel Sounds, Soft Labs: CBC, BMP 04/22/19 06:30 04/23/19 05:58 INR, PTT INR 1.19 (0.83-1.09) H 04/17/19 23:10 Problem List - Problems (1) AMS (altered mental status) Assessment/Plan: 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 CT scan head unremarkable As per neuro ?[facility] vs PD Pt's wbc is normal and afebrile Cultures remain negative Pt now on lipitor Code(s): R41.82 - ALTERED MENTAL STATUS, UNSPECIFIED Qualifiers: Altered mental status type: unspecified Qualified Code(s): R41.82 - Altered mental status, unspecified (2) Acute on chronic renal failure Assessment/Plan: Renal US unremarkable Cont IVF Check labs Code(s): N17.9 - ACUTE KIDNEY FAILURE, UNSPECIFIED; N18.9 - CHRONIC KIDNEY DISEASE, UNSPECIFIED (3) Elevated troponin Assessment/Plan: Cont to monitor ?Demenad ischemia Refused stress test DC planning PT eval Code(s): R79.89 - OTHER SPECIFIED ABNORMAL FINDINGS OF BLOOD CHEMISTRY (4) Diabetes Assessment/Plan: Cont sliding scale w/ coverage Cont januvia Code(s): E11.9 - TYPE 2 DIABETES MELLITUS WITHOUT COMPLICATIONS (5) Hypertension Assessment/Plan: BP slightly fluctuating Cont hydralazine/metoprolol/nifedipine/clonidine Code(s): I10 - ESSENTIAL (PRIMARY) HYPERTENSION (6) CAD (coronary artery disease) Assessment/Plan: Cont plavix Code(s): I25.10 - ATHSCL HEART DISEASE OF [place] CORONARY ARTERY W/O ANG PCTRS
[2019-04-24] MEDS: INSULIN SLIDING SCALE (NOVOLOG) 1 VIAL SQ SCH ×2 (06:36→13:33)
[2019-04-24] MEDS ORDERED: sitaGLIPtin PHOSPHATE 50 MG TABLET PO SCH (07:00)
[2019-04-24] MEDS: hydrALAZINE HCL 10 MG TABLET PO SCH (09:57)
[2019-04-24] MEDS ORDERED: NIFEdipine E.R 60 MG TABLET PO SCH (10:00)
[2019-04-24] MEDS ORDERED: ASPIRIN COATED 81 MG TABLET.EC PO SCH (10:00)
[2019-04-24] MEDS ORDERED: CLOPIDOGREL BISULFATE 75 MG TABLET (FP) PO SCH (10:00)
[2019-04-24 10:02] VITALS: BP 189/89; PULSE 77; TEMP 98.7
--- NOTE | 2019-04-24 10:02 | PN ---
Progress Note (short form) - Note Progress Note: Ortho Pt seen and examined
[2019-04-24] MEDS: HEPARIN NA (PORCINE) 5,000 UNITS/ML 1ML VIAL SQ SCH (10:03)
--- NOTE | 2019-04-24 10:03 | PN ---
Progress Note (short form) - Note Progress Note: Ortho Pt seen and examined Selected Entries 04/24/19 05:00 Temperature 98.9 F Pulse Rate 78 Respiratory 18 Rate Blood Pressure 154/86 no swelling, no erythema, + ttp medial aspect of knee, full rom of hip and knee nvi xrays mild hip and knee djd a/p PT wbat pain control d/w Dr. Padilla
[2019-04-24] MEDS ORDERED: INSULIN (NOVOLOG) ASPART 100 UNITS/ML 10ML VIAL ONE (12:20)
--- NOTE | 2019-04-24 12:59 | PN ---
Progress Note, Physician - Current Medication List Current Medications: Active Medications Acetaminophen (Tylenol -) 650 mg PO Q6H PRN PRN Reason: PAIN Aspirin (Ecotrin -) 81 mg PO DAILY [facility] Last Admin: 04/24/19 09:58 Dose: 81 mg Atorvastatin Calcium (Lipitor -) 10 mg PO HS [facility] Last Admin: 04/23/19 21:31 Dose: 10 mg Clonidine HCl (Catapres Tts Patch -) 0.1 mg TD Q7D [facility] Clopidogrel Bisulfate (Plavix -) 75 mg PO DAILY [facility] Last Admin: 04/24/19 09:57 Dose: 75 mg Heparin Sodium (Porcine) (Heparin -) 5,000 unit SQ BID [facility] Last Admin: 04/24/19 10:03 Dose: 5,000 unit Hydralazine HCl (Apresoline -) 10 mg PO BID [facility] Last Admin: 04/24/19 09:57 Dose: 10 mg Insulin Aspart (Novolog Vial Sliding Scale -) 1 vial SQ [facility]; Protocol Last Admin: 04/24/19 06:36 Dose: Not Given Insulin Detemir (Levemir Vial) 10 units SQ [facility] Last Admin: 04/23/19 21:32 Dose: 10 units Metoprolol Succinate (Toprol Xl -) 100 mg PO BID [facility] Last Admin: 04/24/19 09:57 Dose: 100 mg Nifedipine (Procardia Xl -) 60 mg PO DAILY [facility] Last Admin: 04/24/19 09:57 Dose: 60 mg Sitagliptin Phosphate (Januvia -) 50 mg PO DAILY@0700 [facility] Last Admin: 04/24/19 06:37 Dose: Not Given - Objective Vital Signs: Vital Signs Temperature 98.7 F 04/24/19 09:00 Pulse Rate 77 04/24/19 09:00 Respiratory Rate 20 04/24/19 09:00 Blood Pressure 189/89 H 04/24/19 09:00 O2 Sat by Pulse Oximetry (%) 98 04/23/19 21:00 Labs: CBC, BMP 04/22/19 06:30 04/23/19 05:58 INR, PTT INR 1.19 (0.83-1.09) H 04/17/19 23:10
[2019-04-24] MEDS ORDERED: hydrALAZINE HCL 10 MG TABLET PO ONE (13:02)
--- NOTE | 2019-04-24 13:02 | PN ---
Progress Note, Physician History of Present Illness: Pt seen and examined at bedside. He appears comfortable. - Current Medication List Current Medications: Active Medications Acetaminophen (Tylenol -) 650 mg PO Q6H PRN PRN Reason: PAIN Aspirin (Ecotrin -) 81 mg PO DAILY [facility] Last Admin: 04/24/19 09:58 Dose: 81 mg Atorvastatin Calcium (Lipitor -) 10 mg PO HS [facility] Last Admin: 04/23/19 21:31 Dose: 10 mg Clonidine HCl (Catapres Tts Patch -) 0.1 mg TD Q7D [facility] Clopidogrel Bisulfate (Plavix -) 75 mg PO DAILY [facility] Last Admin: 04/24/19 09:57 Dose: 75 mg Heparin Sodium (Porcine) (Heparin -) 5,000 unit SQ BID [facility] Last Admin: 04/24/19 10:03 Dose: 5,000 unit Hydralazine HCl (Apresoline -) 10 mg PO BID [facility] Last Admin: 04/24/19 09:57 Dose: 10 mg Insulin Aspart (Novolog Vial Sliding Scale -) 1 vial SQ [facility]; Protocol Last Admin: 04/24/19 06:36 Dose: Not Given Insulin Detemir (Levemir Vial) 10 units SQ [facility] Last Admin: 04/23/19 21:32 Dose: 10 units Metoprolol Succinate (Toprol Xl -) 100 mg PO BID [facility] Last Admin: 04/24/19 09:57 Dose: 100 mg Nifedipine (Procardia Xl -) 60 mg PO DAILY [facility] Last Admin: 04/24/19 09:57 Dose: 60 mg Sitagliptin Phosphate (Januvia -) 50 mg PO DAILY@0700 [facility] Last Admin: 04/24/19 06:37 Dose: Not Given - Objective Vital Signs: Vital Signs Temperature 98.7 F 04/24/19 09:00 Pulse Rate 77 04/24/19 09:00 Respiratory Rate 20 04/24/19 09:00 Blood Pressure 189/89 H 04/24/19 09:00 O2 Sat by Pulse Oximetry (%) 98 04/23/19 21:00 Constitutional: Yes: Calm Eyes: Yes: Conjunctiva Clear HENT: Yes: Atraumatic Neck: Yes: Supple Cardiovascular: Yes: S1, S2 Respiratory: Yes: CTA Bilaterally Gastrointestinal: Yes: Soft Genitourinary: Yes: WNL Edema: No Neurological: Yes: Oriented Labs: CBC, BMP 04/22/19 06:30 04/23/19 05:58 INR, PTT INR 1.19 (0.83-1.09) H 04/17/19 23:10 Problem List - Problems (1) CKD (chronic kidney disease) Code(s): N18.9 - CHRONIC KIDNEY DISEASE, UNSPECIFIED Assessment/Plan Current Medications Generic Name Dose Route Start Last Admin Trade Name Freq PRN Reason Stop Dose Admin Acetaminophen 650 mg 04/23/19 18:19 Tylenol - PO Q6H PRN PAIN Aspirin 81 mg 04/24/19 10:00 04/24/19 09:58 Ecotrin - PO 81 mg DAILY [facility] Administration Atorvastatin Calcium 10 mg 04/23/19 22:00 04/23/19 21:31 Lipitor - PO 10 mg HS [facility] Administration Clonidine HCl 0.1 mg 04/25/19 10:00 Catapres Tts Patch - TD Q7D [facility] Clopidogrel Bisulfate 75 mg 04/24/19 10:00 04/24/19 09:57 Plavix - PO 75 mg DAILY [facility] Administration Heparin Sodium (Porcine) 5,000 unit 04/23/19 22:00 04/24/19 10:03 Heparin - SQ 5,000 unit BID [facility] Administration Hydralazine HCl 10 mg 04/23/19 22:00 04/24/19 09:57 Apresoline - PO 10 mg BID [facility] Administration Insulin Aspart 1 vial 04/23/19 22:00 04/24/19 06:36 Novolog Vial Sliding Scale - SQ Not Given ACHS [facility] Protocol Insulin Detemir 10 units 04/23/19 22:00 04/23/19 21:32 Levemir Vial SQ 10 units HS [facility] Administration Metoprolol Succinate 100 mg 04/23/19 22:00 04/24/19 09:57 Toprol Xl - PO 100 mg BID [facility] Administration Nifedipine 60 mg 04/24/19 10:00 04/24/19 09:57 Procardia Xl - PO 60 mg DAILY [facility] Administration Sitagliptin Phosphate 50 mg 04/24/19 07:00 04/24/19 06:37 Januvia - PO Not Given DAILY@0700 [facility] Impression 1. CKD with acute component 2. htn 3. DM 4. cad 5. elevated troponin 6. hypernatremia Plan - increase hydralazine dose - monitor bp - check ua and prt to unscrambler ratio - will need outp follow up - monitor bp
[2019-04-24] MEDS ORDERED: hydrALAZINE HCL 10 MG TABLET PO SCH (22:00)
[2019-04-25] MEDS ORDERED: cloNIDine-TTS 0.1 MG/24 HRS PATCH.TDWK TD SCH ×2 (10:00)
== END 2019-04-24 13:34 | DRG 682 ==
LOC: SUPCPDRO 21:14 → JER 21:14 → JERBED 23:52 → J4W 04-18 15:29 → J5S 04-23 17:50
PROVIDERS: ADMIT Internal Medicine; ATTEND Internal Medicine
DX: N17.9 Acute kidney failure, unspecified (principal); G93.41 Metabolic encephalopathy; E87.0 Hyperosmolality and hypernatremia; I42.1 Obstructive hypertrophic cardiomyopathy; I25.10 Atherosclerotic heart disease of native coronary artery without angina pectoris; I25.2 Old myocardial infarction; E11.22 Type 2 diabetes mellitus with diabetic chronic kidney disease; I12.9 Hypertensive chronic kidney disease with stage 1 through stage 4 chronic kidney disease, or unspecified chronic kidney disease; N18.9 Chronic kidney disease, unspecified; Z79.4 Long term (current) use of insulin; M25.561 Pain in right knee; G93.89 Other specified disorders of brain
CPT/HCPCS: 36415; 70450-TC; 70551-TC; 71045-TC-FY; 73523-TC-FY; 73560-TC-RT-FY; 76775-TC; 76856-TC; 80048; 80053; 81003; 82550; 82553; 82607; 82803; 82962; 83605; 84443; 84484; 85025; 85610; 85651; 85730; 86140; 86480; 86593; 87040; 87086; 87207; 87804; 93005; 93010; 93306-TC; 93880-TC; 97116-GP; 97161-GP; 99285-25; J0131; J1644; J7030